=== PATIENT | female | born 1935 | race Caucasian/White ===

== ENCOUNTER → 2017-01-22 | Outpatient (CLI) | payer OTHER ==
[~2017-01-22] MED LIST: CHOL100010 PO; DIAZ5TAB3 PO
[2017-01-22 14:35] LABS: URINE APPEARANCE CLEAR (CLEAR); URINE BILIRUBIN NEG (NEG); URINE COLOR YELLOW; URINE NITRITE NEG (NEG); UROBILINOGEN NEG (NEG)
[2017-01-22 14:48] LABS: MANUAL MICROSCOPIC REQUIRED? NO; REVIEW REQ? NO
== END | disposition home or self-care (01) ==
LOC: C.LABSPEC 13:51
PROVIDERS: ATTEND Obstetrics & Gynecology
DX: R39.9 Unspecified symptoms and signs involving the genitourinary system (principal)

== ENCOUNTER → 2017-03-25 | Outpatient (CLI) | payer OTHER ==
--- NOTE | 2017-03-26 13:35 | MAMMOGRAPHY REPORT ---
BILATERAL DIGITAL SCREENING MAMMOGRAM TOMOSYNTHESIS WITH CAD: 03/25/2017 CLINICAL HISTORY: Routine screening. Patient has no complaints. TECHNIQUE: Breast tomosynthesis in addition to standard 2D mammography was performed. Current study was also evaluated with a Computer Aided Detection (CAD) system. COMPARISON: Comparison is made to exams dated: 02/28/2016 mammogram, 11/19/2014 mammogram, 11/16/2013 m ammogram, 08/20/2011 mammogram, 08/27/2009 mammogram - [facility], and 08/21/2008. BREAST COMPOSITION: There are scattered areas of fibroglandular density in both breasts. FINDINGS: No suspicious masses, calcifications, or areas of architectural distortion are noted in ei ther breast. There has been no significant interval change compared to prior exams. IMPRESSION: ACR BI-RADS CATEGORY 1: NEGATIVE There is no mammographic evidence of malignancy. A 1 year screening mammogram is recommended. The pa tient will receive written notification of the results. Approximately 10% of breast cancers are not detected with mammography. A negative mammographic report should not delay biopsy if a clinically suggestive mass is present. Melissa Sierra M.D. /:03/25/2017 16:39:14 Assistant Paralegal: Cheyanne MITCHELL(Aislinn)(Mony)([place]), [facility] letter sent: Normal 1/2 BI-RADS Code: ACR BI-RADS Category 1: Negative
== END | disposition home or self-care (01) ==
LOC: C.MAMM 16:11
PROVIDERS: ATTEND Obstetrics & Gynecology
DX: Z12.31 Encounter for screening mammogram for malignant neoplasm of breast (principal)

== ENCOUNTER → 2017-08-06 | Outpatient (CLI) | payer OTHER ==
--- NOTE | 2017-08-06 13:33 | DIAGNOSTIC IMAGING REPORT ---
L KNEE 4 OR MORE HISTORY: 82 years-old Female PRIMARY OSTEOARTHRITIS OF LEFT KNEE chronic left knee pain COMPARISON: Bilateral knee radiographs 02/11/2016 TECHNIQUE: AP view of the bilateral knees with sunrise, tunnel and crosstable lateral views of the left knee FINDINGS: Bones appear mildly demineralized. There is severe joint space narrowing involving the left medial compartment which appears to have slightly progressed from prior study. Moderate joint space narrowing of the medial compartment on the right. There is mild lateral compartment and moderate patellofemoral compartment osteoarthritis on the left. There is prominent marginal spurring about the knee along with spurring of the tibial spines. No acute fracture, subluxation or intra-articular loose body identified. There is a small joint effusion. IMPRESSION: 1. Small joint effusion without acute fracture or subluxation. 2. Tricompartmental osteoarthritis about the left knee, most pronounced within the medial compartment where there is severe disease. 3. Mild bone demineralization. The above report was generated using voice recognition software. It may contain grammatical, syntax or spelling errors. Electronically signed by: Owen Carrillo M.D. 08/06/2017 1:32 PM Dictated Date/Time: 08/06/2017 1:30 PM
== END | disposition home or self-care (01) ==
LOC: C.RDSM 13:00
PROVIDERS: ATTEND Family Medicine
DX: M17.12 Unilateral primary osteoarthritis, left knee (principal)

== ENCOUNTER 2018-03-08 07:11 | Inpatient (IN) | payer OTHER ==
[2018-01-18 08:28] VITALS: BMI 27.0
[2018-01-18 10:15] VITALS: BMI 29.0
--- NOTE | 2018-03-05 10:58 | HISTORY & PHYSICAL EXAMINATION ---
DATE OF ADMISSION: 03/08/2018 CHIEF COMPLAINT: Left knee pain. HISTORY OF PRESENT ILLNESS: An 83-year-old female who lives in [place] who presents for surgical treatment of her left knee. She has got a long history of left knee pain and discomfort that has gradually just gotten worse over time. She has been treated by Dr. Mcelroy at [facility]. She had steroid shots and viscosupplementation, which does not seem to help at all anymore. She has been through therapy, which helped minimally. Pain is mostly medially. It is increased with weightbearing. She has become less active due to her knee pain. She would like to go walking more and like to have her knee fixed. PAST MEDICAL HISTORY: Noncontributory. PAST SURGICAL HISTORY: None. ALLERGIES: None. CURRENT MEDICATIONS: Include Metamucil. SOCIAL HISTORY: This is an 83-year-old female who lives in [place]. She is retired. She is a teacher by training. She is . Rare alcohol intake. FAMILY HISTORY: Noncontributory. REVIEW OF SYSTEMS: Negative for diabetes, neurologic problems, vascular problems, or bleeding disorders. No chest pain. No shortness of breath. No history of DVT or PE. PHYSICAL EXAMINATION: GENERAL: Reveals a pleasant, thin elderly female. Looks to be in excellent health. HEENT: Benign. NECK: Supple. No lymphadenopathy. LUNGS: Clear to auscultation. HEART: Regular rate and rhythm. ABDOMEN: Soft, nontender, nondistended. EXTREMITIES: Grossly neurovascularly intact except as follows: Examination of the left knee reveals patient walks with a slight limp on her left side. She has got varus alignment to her knee. She has got bony hypertrophy medially. Small knee effusion. Range of motion is 5-125. There is no clinical instability. No pain with hip motion. She is neurologically intact. X-RAYS: X-ray of left knee reviewed. Shows advanced left knee DJD. She had complete loss of medial joint space. She has subchondral sclerosis. She has osteophytes of the medial femoral condyle and medial tibial plateau. ASSESSMENT: An 83-year-old fairly active, healthy female with advanced left knee degenerative joint disease, unresponsive to conservative treatment. She would like to have her knee fixed. PLAN: We are going to take her to the operating room and do a left knee replacement. The risks and benefits of this procedure were explained to the patient include, but not limited to DVT, PE, , infection, neurological injury, vascular injury, bleeding problem, pain, limited range of motion, stiffness, failure to relieve her symptoms, incomplete relief of symptoms, need for further surgery in future, fracture, leg length inequality, nerve palsy, etc. The patient understands and desires to proceed. Informed consent was obtained. We will likely send her home after her stay in the hospital with the [facility] home health program.
[~2018-03-08] VITALS: Ht 162.6 cm; Wt 76.7 kg
[2018-03-08] VITALS (9 sets, daily range): BP systolic 88–128; BP diastolic 48–73; PULSE 61–72; TEMP 36.3–36.7; O2SAT 92–97; Ht 162.6 cm; Wt 76.7 kg
[~2018-03-08 07:11] MED LIST changes: +ACETAMINOPHEN 500 MG TAB PO SCH; +BACITRACIN 50000 UNIT VIAL ONE; +BUPIVACAINE 0.25% 30 ML VIAL ONE; +BUPIVACAINE 0.5 % 5 MG/1 ML PF 10ML VIAL ONE; +BUPIVACAINE LIPOSOME 1/3% 266 MG/20 ML VIAL ONE; +BUPIVACAINE LIPOSOME 266 MG, BUPIVACAINE/EPINEPHRINE INJ 50 ML, SODIUM CHLORIDE 0.9% PF... INFIL SCH; +BUPIVACAINE/EPINEPHRINE 0.25% 1:200,000 30 ML VIAL ONE; +CEFAZOLIN 2000MG IV PUSH 15 ML IV SCH; +FAMOTIDINE 20 MG TAB PO SCH; +FLUT50SP45; +GABAPENTIN 300 MG CAP PO SCH; +IBUP-1050 PO; +LACTATED RINGER'S 1000ML 1,000 ML IV SCH; +LACTATED RINGER'S 1000ML 500 ML IV SCH; +LACTATED RINGER'S 1000ML IV SCH; +LOPE-41 PO; +MELA1TAB12 PO; +METOCLOPRAMIDE HCL 10 MG TAB PO SCH; +MISCCAP77 PO; +NUTR50CA PO; +OMEG10007 PO; +PSYL48.59 PO; +SODIUM CHLORIDE 0.9% PF 50 ML VIAL ONE; +TRANEXAMIC ACID INJ 1,000 MG x 1 Bag Intra-Op IV SCH; +TRAZ50TA35 PO
[2018-03-08] MEDS ORDERED: ACET-1693 PO (07:55)
[2018-03-08] MEDS ORDERED: LIDOCAINE HCL 2% 2 ML VIAL (20MG/ML) ONE (08:07)
[2018-03-08] MEDS ORDERED: FENTANYL CITRATE INJ 50 MCG/1 ML 2 ML VIAL ONE (08:07)
[2018-03-08] MEDS ORDERED: MIDAZOLAM HCL 1 MG/ML 2ML VIAL ONE (08:07)
[2018-03-08] MEDS ORDERED: PROPOFOL IV EMULSION 10 MG/ML 20 ML VIAL ONE ×2 (08:07→11:15)
[2018-03-08] MEDS ORDERED: FENTANYL CITRATE INJ 50 MCG/1 ML 2 ML VIAL IV PRN (08:15)
[2018-03-08] MEDS ORDERED: EpHEDrine SULFATE INJ 50 MG/ML AMP IV PRN (08:15)
[2018-03-08] MEDS ORDERED: ATROPINE SULFATE 0.1 MG/ML 5ML SYR IV PRN (08:15)
[2018-03-08] MEDS ORDERED: ONDANSETRON INJ 2 MG/ML 2 ML VIAL IV PRN (08:15)
--- NOTE | 2018-03-08 09:23 | History & Physical Bridge Note ---
H&P Re-Evaluation Bridge Note: I have examined the patient, reviewed the History & Physical and in the interval since the performance of the History & Physical I have noted the following changes of clinical significance: No changes noted
--- NOTE | 2018-03-08 11:36 | [facility] Post Operative Brief Note ---
Immediate Operative Summary Operative Date Mar 08, 2018. Pre-Operative Diagnosis DEGENERATIVE JOINT DISEASE LEFT KNEE Post-Operative Diagnosis degenerative joint disease left knee Procedure(s) Performed Left total knee arthroplasty Surgeon DR. Janny ANGELO Optical Scientist Surgeon(s) Symone SAWYER PAC Estimated Blood Loss 50cc Findings Consistent with Post-Op Diagnosis Fluids (cc crystalloids) 1300 cc Specimens LEFT KNEE BONE AND TISSUE Drains None Anesthesia Type MAC Spinal Regional Complication(s) none Disposition Accompanied Pt To Recover: no Disposition: Recovery Room / PACU Overlapping Procedure I was present for: the critical portions of procedure. I was immediately available: during the entire case
[2018-03-08] MEDS ORDERED: HYDROmorphone INJ 0.5 MG/0.5 ML SYR IV PRN (11:45)
[2018-03-08] MEDS ORDERED: MELATONIN 5 MG PO PRN (11:45)
[2018-03-08] MEDS ORDERED: SILVER SULFADIAZINE 1% CR 50 GM JAR EXT PRN (11:45)
[2018-03-08] MEDS ORDERED: ZOLPIDEM TARTRATE 5 MG TAB PO PRN (11:45)
[2018-03-08] MEDS ORDERED: MAGNESIUM HYDROXIDE SUSP 30 ML UDC PO PRN (11:45)
[2018-03-08] MEDS ORDERED: ALUMINUM/MAGNESIUM/SIMETH (MAALOX MAX) 30 ML UDC PO PRN (11:45)
[2018-03-08] MEDS ORDERED: METOCLOPRAMIDE HCL INJ 5 MG/ML 2 ML VIAL IV PRN (11:45)
[2018-03-08] MEDS ORDERED: CEFAZOLIN IV 1,000 MG in DEXTROSE 5% 50ML 50 ML IV SCH (11:45)
[2018-03-08] MEDS ORDERED: FLUTICASONE PROPIONATE NA SPR 16 GM BTL PRN (11:45)
--- NOTE | 2018-03-08 12:07 | DIAGNOSTIC IMAGING REPORT ---
L KNEE 1 OR 2 VIEWS ROUTINE CLINICAL HISTORY: AP/LATERAL IN PACU LEFT KNEE COMPARISON: None. DISCUSSION: Operative changes consistent with a total left knee arthroplasty. Good contact between prosthetic Bone. Expected soft tissue postoperative change. IMPRESSION: Anatomic alignment post total left knee arthroplasty. The above report was generated using voice recognition software. It may contain grammatical, syntax or spelling errors. Electronically signed by: Tristin Boyd M.D. 03/08/2018 12:06 PM Dictated Date/Time: 03/08/2018 12:05 PM
--- NOTE | 2018-03-08 12:14 | OPERATIVE REPORT ---
DATE OF OPERATION: 03/08/2018 SURGEON: Dhruv Martinez MD BRIQUETTE MAKER: GENESIS Brian PREOPERATIVE DIAGNOSIS: Left knee degenerative joint disease. POSTOPERATIVE DIAGNOSIS: Left knee degenerative joint disease. PROCEDURE PERFORMED: Left cemented posterior stabilized total knee arthroplasty. COMPLICATIONS: None. ESTIMATED BLOOD LOSS: 50 mL. FLUID REPLACEMENT: 1300 mL crystalloid fluid replacement. TOURNIQUET TIME: 51 minutes at 300 mmHg. ANESTHESIA: Spinal with adductor canal block. DRAINS: None. SPECIMENS: Left knee sent for pathology. OPERATIVE INDICATIONS: The patient is an 83-year-old female who has had a very long history of left knee pain and discomfort which has become less successful. We treated with conservative care. She has been through extensive conservative care including steroid shots and viscosupplementation as well as medicines without much relief recently. X-rays show advanced DJD. She would like to proceed with total knee arthroplasty. OPERATIVE FINDINGS: Operative findings revealed advanced left knee DJD. She had extensive grade 4 [id number] disease of the medial femoral condyle and medial tibial plateau. She had osteophytes off the medial femoral condyle and medial tibial plateau. She had a varus deformity to her knee. The lateral and patellofemoral compartments showed some moderate degenerative change. OPERATIVE IMPLANTS: Operative implants consisted of: 1. Biomet Vanguard size 62.5 left posterior stabilized bifemoral component. 2. A Biomet size 67 tibial tray. 3. A 10 mm posterior stabilized polyethylene insert. 4. A 28 x 8 all poly patella. OPERATIVE PROCEDURE: The patient was taken to the operating room, identified and placed on the operative table in supine position. All contact areas were appropriately padded. IV antibiotics were provided by the anesthesia team. A spinal anesthetic and adductor canal block had been provided in the holding area. Britton catheter was placed in sterile fashion. Left thigh tourniquet was then placed and the left lower extremity was then prepped and draped in usual sterile fashion. The left leg was elevated and exsanguinated with Esmarch and tourniquet placed at 300 mmHg. An anterior approach of the left knee was then performed through a longitudinal incision centered over the patella. Sharp dissection was carried through the subcutaneous tissue down to the level of the extensor mechanism. A medial parapatellar arthrotomy incision was made. Some subperiosteal dissection was carried out medially. The fat pad resected from beneath the patellar tendon. Lateral patellofemoral ligament was released. Patella was everted and knee was flexed. The osteophytes were taken off the distal femur. The ACL and PCL were then released from the distal femur. The tibia subluxated anteriorly. The external tibial alignment jig was then placed in the anterior face of the tibia and adjusted 14 mm medially. Proximal tibial cut was made to remove about 2 mm of bone from the most deficient aspect of the medial tibial plateau. Some osteophytes were taken off medial and posteromedially. Tibia sized to a size 67. Attention was then drawn to the femur. The distal femur was entered with a sharp drill bit. Intramedullary canal was suctioned. A left 5-degree valgus cutting guide was placed. Distal femoral cutting block was pinned in place. Distal femoral cut was made to take an additional 3 mm of bone off the distal femur. The femur was then sized to a size 62.5. We downsized this just slightly. The AP cutting block was pinned parallel to the epicondylar axis, which was 5 degrees of external rotation. The anterior cut, anterior chamfer, posterior cut, posterior chamfer cuts were made. Box cutting guide was placed and adjusted slightly lateral and the box cut was made. The knee was flexed. The remnants of the medial and lateral menisci were excised. The osteophytes were taken off the posterior aspect of the femur. A trial femoral component was placed. Tibial tray was pinned in maximum external rotation, and the drill and stem punch were used to create defect in proximal tibia for the tibial tray. The knee was then trialed and the 10 mm insert fit most appropriately. Attention was then drawn to the patella. The patella was cleaned of all soft tissues. Patella thickness measured 20 mm in thickness, it was cut down to 12. It was sized to a size 28 patella. Lug holes were drilled for a 28 patella. The lateral osteophyte was removed. Patella button was placed. Knee was taken through range of motion and patella tracked nicely with no thumbs test. Attention was then drawn toward placing the permanent components. All trial components were removed. A bone plug was placed in the distal femur to limit blood loss. A double batch of Palacos G cement was mixed. A left size 62.5 posterior stabilized femoral component, size 67 tibial tray, 10 mm posterior stabilized polyethylene insert, 28 x 8 all poly patella then cemented in place. Knee was brought out into full extension until the cement hardened. A final cement check was then performed. Pericapsular tissues were injected with a total of 100 mL of combination of 20 mL of Exparel, 30 mL of normal saline, 50 mL of 0.25% Marcaine with epinephrine. The patient did receive 1 gram of tranexamic acid. The tourniquet was then let down for final tourniquet of 51 minutes. Hemostasis was assured with use of electrocautery. The extensor mechanism was then closed with combination of #1 PDS suture and #1 Vicryl suture in [id number] fashion. Extensor mechanism was checked and found to be intact. The subcutaneous tissue was then closed with 2 Dexon suture in a buried interrupted fashion. Skin was closed skin carlos manuel. The leg was then cleaned, dried and a sterile dressing of Xeroform, 4 x 4's, sterile cast padding and Gurwinder bandage were applied. The patient then transferred to the recovery room in stable condition. The patient tolerated the procedure well with no complication. All needle and sponge counts were correct at the end of the operation. I attest to the content of the Intraoperative Record and any orders documented therein. Any exception s are noted below.
--- NOTE | 2018-03-08 12:50 | Anesthesiology Progress Note ---
Anesthesia Post Op Note Date & Time Mar 08, 2018 at 12:50 Vital Signs Pain Intensity: 0 Vital Signs Past 12 Hours Date Time Temp Pulse Resp B/P (MAP) Pulse Ox O2 Delivery O2 Flow Rate FiO2 03/08/18 12:40 68 17 122/52 97 Nasal Cannula 2 03/08/18 12:30 67 16 118/50 100 Nasal Cannula 2 03/08/18 12:20 66 14 128/55 99 Nasal Cannula 2 03/08/18 12:10 73 15 124/53 100 Nasal Cannula 2 03/08/18 12:00 64 15 118/65 99 Nasal Cannula 2 03/08/18 11:50 71 14 110/49 99 Nasal Cannula 2 03/08/18 11:41 36.5 71 19 115/50 98 Nasal Cannula 2 03/08/18 07:55 36.7 71 20 128/73 92 Room Air Notes Mental Status: alert / awake / arousable, participated in evaluation Nausea / Vomiting: adequately controlled Pain: adequately controlled Airway Patency, RR, SpO2: stable & adequate BP & HR: stable & adequate Hydration State: stable & adequate Neuraxial Anesthesia: was administered, sensory block is resolving Anesthetic Complications: no major complications apparent
[2018-03-08] MEDS: FERROUS GLUCONATE 324 MG TAB PO SCH ×2 (14:19→17:50)
[2018-03-08] MEDS ORDERED: LOPERAMIDE HCL 2 MG CAP PO PRN (14:30)
[2018-03-08] MEDS: D5W AND 1/2NSS + 20MEQ KCL 1,000 ML IV SCH (15:10)
[2018-03-08] MEDS: KETOROLAC TROMETHAMINE 15 MG/ML VIAL IV. SCH ×2 (15:57→21:06)
--- NOTE | 2018-03-08 16:39 | PROGRESS NOTE ---
DATE: 03/08/2018 SUBJECTIVE: An 83-year-old white female postop from a left knee replacement. She is doing pretty well. Does not have any pain yet. She really cannot feel her legs yet. Denies any chest pain or shortness of breath. Not feeling dizzy or lightheaded. OBJECTIVE: VITAL SIGNS: Temperature 36.4. Vital signs stable. GENERAL: Physical examination reveals a pleasant elderly female. She is lying in bed, looks comfortable. LUNGS: Clear to auscultation. HEART: Regular rate and rhythm. ABDOMEN: Soft, nontender, nondistended. EXTREMITIES: Grossly neurovascularly intact except as follows: Examination of the left lower extremity reveals the leg to be well aligned. Dressing is clean, dry and intact. She has got brisk refill. She has got good distal pulse. No significant sensory or motor function yet. X-RAYS: X-rays of the left knee from recovery room reviewed. It shows a cemented posterior stabilized total knee arthroplasty. Components looked to be in good position. No signs of problems. ASSESSMENT: An 83-year-old white female postop from a left knee replacement. She is doing well. Pain is controlled. Her block is still in effect. PLAN: 1. DVT prophylaxis including thigh-high TEDs, SCDs, and we will start her on Xarelto 24 hours postop for a total of 30 days. 2. PT and OT. Weight bear as tolerated. Left total knee protocol. 3. Pain control, doing pretty well with current pain regimen. We will obviously have to titrate her meds for pain as the block wears off. 4. IV antibiotics x24 hours. 5. Disposition: She is hoping to be discharged to home with some home health once adequately recovered.
[2018-03-08] MEDS: CEFAZOLIN IV 1,000 MG in SYRINGE 0 ML IV SCH (17:50)
[2018-03-08] MEDS ORDERED: TRANEXAMIC ACID INJ 1,000 MG in SODIUM CHLORIDE 0.9% 100ML 100 ML IV SCH (18:00)
[2018-03-08] MEDS: TRAMADOL HCL 50 MG TAB PO PRN ×2 (19:36→21:06)
[2018-03-08] MEDS ORDERED: ULT50X PO (20:15)
[2018-03-08] MEDS ORDERED: FRRG PO (20:15)
[2018-03-08] MEDS ORDERED: ACET-24 PO (20:15)
[2018-03-08] MEDS ORDERED: XRL10 PO (20:15)
--- NOTE | 2018-03-08 20:18 | Discharge Instructions ---
Discharge Instructions Date of Service Mar 08, 2018. Admission Reason for Admission: Left Knee Degenerative Joint Disease Discharge Discharge Diagnosis / Problem: Left Knee Replacement Discharge Goals Goal(s): Decrease discomfort, Improve function, Increase independence, Improve disease control, Therapeutic intervention Activity Recommendations Activity Limitations: per Instructions/Follow-up section Weightbearing Status: Left weightbearing . Instructions / Follow-Up Instructions / Follow-Up ACTIVITY RECOMMENDATIONS: Physical Therapy: * You will go to physical therapy three times each week for four to six weeks after your surgery in order to regain your knee range of motion and to retrain your knee to work properly. * It is just as important to make sure you are getting your knee perfectly straight as it is to regain your knee bend. * Taking a pain pill an hour before therapy can help you have a more productive and comfortable therapy session. Home Exercise: * You were shown a series of exercises (heel props, heel slides, etc.) in the hospital. Do these exercises three to four times each day including the exercises you were shown in physical therapy. Walking: * Get up and walk several times each day. For the first four weeks, try not to stand or walk for more than one hour at a time. If you do stand or walk for more than one hour, you will not hurt anything, but your knee and leg will likely swell. * As you feel comfortable, you may change from the walker or crutches to a cane and then to independent walking. MEDICATIONS: New Medicine: * You will likely be taking one or more of these medications: 1. Tramadol - A quick and shorter-acting pain medication. Take one to two tablets every four to six hours to lessen your pain. 2. Iron Sulfate - Take two times each day for the month after surgery to help you replace the blood lost during surgery. 3. Xarelto - Thins your blood to lessen the chance of forming a blood clot. * The most common side effects of pain medicine and iron are nausea and constipation. If nausea or constipation is too much of a problem or if you have any questions about your new medicines or doses, call [facility] at [phone]. We will try to help you manage these issues. VERY IMPORTANT TO READ AND REVIEW" Pain: * The immediate post-operative period after knee replacement surgery is often quite painful. * You are given a prescription for pain medicine. You should take it, as directed, when you need it, especially before physical therapy and before going to bed. Pain that interferes with sleep is very common and can last several months. * You will likely need pain medicine for the first four to six weeks. It will not stop all of the pain. The pain will lessen and as you feel better, you may change to milder pain medicine such as Tylenol. * The most common side effects of pain medicine are nausea and constipation, so don't take more than you need. SPECIAL CARE INSTRUCTIONS: TEDs/Elastic Stockings: * The white elastic stockings help limit swelling and prevent blood clots from forming in your legs. The more you wear them, the more they work. * Wear them for six weeks after knee replacement surgery and four weeks after partial knee replacement. Prevention of Infection: * Take antibiotics one hour before any dental cleaning, dental work, urological procedure, gastrointestinal procedure or any invasive surgery in order to prevent your new joint from getting infected. * You may get the antibiotics from the doctor performing the procedure or you may call our office at before and we will call in a prescription to the pharmacy of your choice. Things to Watch For: * Drainage from the incision site that occurs more than one week after your surgery. * Severely increased knee/leg pain or swelling. * Increased redness at the incision site. * Fever above 102 degrees Fahrenheit. * Unusual chest pain or shortness of breath. * Unusual pain or burning with urination. Call [facility] at with any of the above problems or if you have any questions about your medicines or recovery. FOLLOW UP VISIT: Make an appointment to see your doctor for approximately two weeks after surgery for a progress check and staple removal by calling the office at . Current Hospital Diet Patient's current hospital diet: Regular Diet Discharge Diet Recommended Diet: Regular Diet Procedures Procedures Performed: Left total knee arthroplasty Pending Studies Studies pending at discharge: no Medical Emergencies . Who to Call and When: Medical Emergencies: If at any time you feel your situation is an emergency, please call [phone] immediately. . Non-Emergent Contact Non-Emergency issues call your: Surgeon . "Provider Documentation" section prepared by Dhruv Martinez. .
[2018-03-08] MEDS: SENNA 8.6 MG TAB PO SCH (21:00)
[2018-03-08] MEDS: DOCUSATE SODIUM 100 MG CAP PO SCH (21:05)
[2018-03-08] MEDS: ACETAMINOPHEN 500 MG TAB PO SCH (21:05)
[2018-03-08] MEDS: TRAZODONE HCL 50 MG TAB PO SCH (21:06)
[2018-03-09] MEDS: D5W AND 1/2NSS + 20MEQ KCL 1,000 ML IV SCH ×2 (01:04→09:51)
[2018-03-09] MEDS: DIAZEPAM 5MG TAB PO PRN ×2 (01:39→23:46)
[2018-03-09] MEDS: CEFAZOLIN IV 1,000 MG in SYRINGE 0 ML IV SCH (01:40)
[2018-03-09 03:52] VITALS: BP 93/52; PULSE 57; TEMP 36.6; O2SAT 98
[2018-03-09] MEDS: KETOROLAC TROMETHAMINE 15 MG/ML VIAL IV. SCH ×4 (04:05→20:20)
[2018-03-09] MEDS: ACETAMINOPHEN 500 MG TAB PO SCH ×3 (06:27→20:21)
[2018-03-09 06:47] LABS: HEMOGLOBIN 11.4 g/dL (12.0-16.0); MEAN CELL VOLUME 89.9 fL (80-100); MEAN CORPUSCULAR HEMOGLOBIN 30.2 pg (25-34); MEAN CORPUSCULAR HGB CONC 33.5 g/dl (32-36); PLATELET COUNT 125 K/uL (130-400); RED CELL DISTRIBUTION WIDTH SD 42.4 fL (36.4-46.3); WHITE BLOOD COUNT 4.21 K/uL (4.8-10.8)
[2018-03-09 07:22] LABS: CALCIUM 7.8 mg/dl (8.5-10.1); CREATININE 0.68 mg/dl (0.60-1.20); POTASSIUM 4.3 mmol/L (3.5-5.1)
[2018-03-09 07:23] VITALS: BP 101/60; PULSE 63; TEMP 37; O2SAT 93
[2018-03-09] MEDS: TRAMADOL HCL 50 MG TAB PO PRN ×3 (07:37→20:20)
--- NOTE | 2018-03-09 08:00 | Anesthesiology Progress Note ---
Anesthesia Post Op Note Date & Time Mar 09, 2018 at 08:00 Vital Signs Pain Intensity: 7.0 Vital Signs Past 12 Hours Date Time Temp Pulse Resp B/P (MAP) Pulse Ox O2 Delivery O2 Flow Rate FiO2 03/09/18 07:30 Room Air 03/09/18 07:23 37.0 63 18 101/60 (74) 93 Room Air 03/09/18 03:52 36.6 57 16 93/52 (66) 98 Room Air 03/08/18 23:30 92 Room Air 1.0 03/08/18 23:20 36.6 61 16 90/48 (62) 92 Room Air 03/08/18 23:20 88/51 (63) Notes Mental Status: alert / awake / arousable, participated in evaluation Pt Amnestic to Procedure: Yes Nausea / Vomiting: adequately controlled Pain: adequately controlled Airway Patency, RR, SpO2: stable & adequate BP & HR: stable & adequate Hydration State: stable & adequate Neuraxial Anesthesia: was administered, sensory block resolved Anesthetic Complications: no major complications apparent
[2018-03-09] MEDS: CHOLECALCIFEROL 400 INTER.UNIT TAB PO SCH (08:41)
[2018-03-09] MEDS ORDERED: PROBIOTIC PRODUCT PO SCH (09:00)
[2018-03-09] MEDS ORDERED: NUTRITIONAL SUPPLEMENTS PO SCH (09:00)
[2018-03-09] MEDS ORDERED: PSYLLIUM 58.6% PWD PACK S\\F PO SCH (09:00)
[2018-03-09] MEDS ORDERED: LOPERAMIDE LIQUID 1MG/7.5ML 120ML BTL PO SCH (09:00)
[2018-03-09] MEDS: DOCUSATE SODIUM 100 MG CAP PO SCH ×2 (09:48→20:21)
[2018-03-09] MEDS: FERROUS GLUCONATE 324 MG TAB PO SCH ×3 (09:48→18:35)
[2018-03-09] MEDS: MULTIVITAMIN TAB PO SCH (09:48)
[2018-03-09] MEDS: PANTOprazole SOD 40 MG TAB PO SCH (09:48)
--- NOTE | 2018-03-09 09:49 | PROGRESS NOTE ---
DATE: 03/09/2018 SUBJECTIVE: An 83-year-old white female postop day 1 from a left knee replacement. She is doing pretty well. The feeling and function has come back in her leg. She is having some pain but manageable. No chest pain or shortness of breath. Not feeling dizzy or lightheaded. OBJECTIVE: VITAL SIGNS: Temperature 37.0. Vital signs stable. GENERAL: Reveals a pleasant elderly female. She is sitting up in bed and looks pretty comfortable. EXTREMITIES: Examination of the left leg reveals the leg to be well aligned. Dressing is clean, dry, and intact. There is no significant drainage. She can dorsiflex and plantarflex her foot appropriately. She is neurologically intact. LABORATORY DATA: Hemoglobin 11.4. Hematocrit 34.0. Electrolytes are stable. ASSESSMENT: An 83-year-old white female postop day 1 from left knee replacement, doing pretty well. Her pain is reasonably well controlled. She is neurologically intact. Her nerve and sensory functions have returned. PLAN: 1. DVT prophylaxis including thigh-high TEDs, SCDs, and Xarelto for 1 month. 2. PT/OT. She can weightbear as tolerated. Left total knee protocol. 3. Pain control, doing well with current pain regimen. We are going to try and stick to Tylenol, tramadol, and low-dose Toradol. 4. Disposition: She is now hoping to go to [facility]. financial services agent has seen her and will work on this and hopefully get approval.
[2018-03-09 10:58] VITALS: BP 97/58; PULSE 64; O2SAT 91
[2018-03-09] MEDS: RIVAROXABAN 10 MG TAB PO SCH (12:11)
[2018-03-09 16:14] VITALS: BP 108/61; PULSE 56; TEMP 36.8; O2SAT 94
[2018-03-09] MEDS: SENNA 8.6 MG TAB PO SCH (20:21)
[2018-03-09] MEDS: TRAZODONE HCL 50 MG TAB PO SCH (20:22)
--- NOTE | 2018-03-09 20:24 | Discharge Instructions ---
Discharge Instructions Date of Service Mar 09, 2018. Admission Reason for Admission: Left Knee Degenerative Joint Disease Discharge Discharge Diagnosis / Problem: Left Knee Replacement Discharge Goals Goal(s): Decrease discomfort, Improve function, Increase independence, Improve disease control, Therapeutic intervention Activity Recommendations Activity Level: Assistance Required Therapies: Physical Therapy, Occupational Therapy Weightbearing Status: Left weightbearing . Additional Information Patient informed of condition: Yes Advance Directives: Yes DNR: No Level of Care: Acute Rehab Communicable Disease: No Prognosis: Improving Instructions / Follow-Up Instructions / Follow-Up ACTIVITY RECOMMENDATIONS: Physical Therapy: * You will go to physical therapy three times each week for four to six weeks after your surgery in order to regain your knee range of motion and to retrain your knee to work properly. * It is just as important to make sure you are getting your knee perfectly straight as it is to regain your knee bend. * Taking a pain pill an hour before therapy can help you have a more productive and comfortable therapy session. Home Exercise: * You were shown a series of exercises (heel props, heel slides, etc.) in the hospital. Do these exercises three to four times each day including the exercises you were shown in physical therapy. Walking: * Get up and walk several times each day. For the first four weeks, try not to stand or walk for more than one hour at a time. If you do stand or walk for more than one hour, you will not hurt anything, but your knee and leg will likely swell. * As you feel comfortable, you may change from the walker or crutches to a cane and then to independent walking. MEDICATIONS: New Medicine: * You will likely be taking one or more of these medications: 1. Tramadol - A quick and shorter-acting pain medication. Take one to two tablets every four to six hours to lessen your pain. 2. Iron Sulfate - Take two times each day for the month after surgery to help you replace the blood lost during surgery. 3. Xarelto - Thins your blood to lessen the chance of forming a blood clot. * The most common side effects of pain medicine and iron are nausea and constipation. If nausea or constipation is too much of a problem or if you have any questions about your new medicines or doses, call [facility] at [phone]. We will try to help you manage these issues. VERY IMPORTANT TO READ AND REVIEW" Pain: * The immediate post-operative period after knee replacement surgery is often quite painful. * You are given a prescription for pain medicine. You should take it, as directed, when you need it, especially before physical therapy and before going to bed. Pain that interferes with sleep is very common and can last several months. * You will likely need pain medicine for the first four to six weeks. It will not stop all of the pain. The pain will lessen and as you feel better, you may change to milder pain medicine such as Tylenol. * The most common side effects of pain medicine are nausea and constipation, so don't take more than you need. SPECIAL CARE INSTRUCTIONS: TEDs/Elastic Stockings: * The white elastic stockings help limit swelling and prevent blood clots from forming in your legs. The more you wear them, the more they work. * Wear them for six weeks after knee replacement surgery and four weeks after partial knee replacement. Prevention of Infection: * Take antibiotics one hour before any dental cleaning, dental work, urological procedure, gastrointestinal procedure or any invasive surgery in order to prevent your new joint from getting infected. * You may get the antibiotics from the doctor performing the procedure or you may call our office at before and we will call in a prescription to the pharmacy of your choice. Things to Watch For: * Drainage from the incision site that occurs more than one week after your surgery. * Severely increased knee/leg pain or swelling. * Increased redness at the incision site. * Fever above 102 degrees Fahrenheit. * Unusual chest pain or shortness of breath. * Unusual pain or burning with urination. Call [facility] at with any of the above problems or if you have any questions about your medicines or recovery. FOLLOW UP VISIT: Make an appointment to see your doctor for approximately two weeks after surgery for a progress check and staple removal by calling the office at . Current Hospital Diet Patient's current hospital diet: Regular Diet Discharge Diet Recommended Diet: Regular Diet Procedures Procedures Performed: Left total knee arthroplasty Pending Studies Studies pending at discharge: no Medical Emergencies . Who to Call and When: Medical Emergencies: If at any time you feel your situation is an emergency, please call [phone] immediately. . Non-Emergent Contact Non-Emergency issues call your: Surgeon . . "Provider Documentation" section prepared by Dhruv Martinez. . Core Measure Problem Core Measures: None
[2018-03-09 23:16] VITALS: BP 101/57; PULSE 56; TEMP 36.6; O2SAT 91
[2018-03-09 23:30] VITALS: O2SAT 91
[2018-03-10] MEDS: KETOROLAC TROMETHAMINE 15 MG/ML VIAL IV. SCH ×2 (04:07→09:59)
[2018-03-10] MEDS: ACETAMINOPHEN 500 MG TAB PO SCH ×2 (06:15→13:32)
[2018-03-10 07:07] VITALS: BP 94/49; PULSE 56; TEMP 36.7; O2SAT 95
[2018-03-10 07:50] VITALS: TEMP 36.7; O2SAT 95
--- NOTE | 2018-03-10 08:07 | PROGRESS NOTE ---
DATE: 03/10/2018 SUBJECTIVE: An 83-year-old female postop day 2 from a left knee replacement. Patient is doing well. Pain is bit better today. No chest pain or shortness of breath. Not feeling dizzy or lightheaded. OBJECTIVE: VITAL SIGNS: Temperature is 36.7. Vital signs stable. PHYSICAL EXAMINATION: GENERAL: A pleasant elderly female. Patient is lying in bed, looks completely comfortable. EXTREMITIES: Examination of the left leg reveals the dressing to be clean, dry and intact. Calf is soft and supple. She is neurologically intact. ASSESSMENT: An 83-year-old female postop day 2 from a left knee replacement, doing pretty well. PLAN: 1. DVT prophylaxis including TEDs, SCDs, and Xarelto for 1 month postop. 2. PT, OT. Patient is to weightbear as tolerated. Left total knee protocol. 3. Pain control, doing pretty well with current pain regimen. 4. Disposition: She is hoping to be discharged to rehab for a brief rehab stay once medically stable.
[2018-03-10] MEDS: PANTOprazole SOD 40 MG TAB PO SCH (09:01)
[2018-03-10] MEDS: FERROUS GLUCONATE 324 MG TAB PO SCH ×2 (09:01→12:30)
[2018-03-10] MEDS: MULTIVITAMIN TAB PO SCH (09:01)
[2018-03-10] MEDS: DOCUSATE SODIUM 100 MG CAP PO SCH (09:01)
[2018-03-10] MEDS: CHOLECALCIFEROL 400 INTER.UNIT TAB PO SCH (09:01)
[2018-03-10] MEDS: RIVAROXABAN 10 MG TAB PO SCH (09:02)
[2018-03-10] MEDS: TRAMADOL HCL 50 MG TAB PO PRN (09:04)
[2018-03-10] MEDS: BISACODYL 10 MG SUPP PR PRN ×2 (12:04→12:05)
[2018-03-10 13:30] VITALS: BP 112/67; PULSE 65
[2018-03-11] MEDS ORDERED: TRAM-10 PO (08:30)
[2018-03-11] MEDS ORDERED: FERR325T18 PO (08:30)
[2018-03-11] MEDS ORDERED: XRL10 PO (08:30)
[2018-03-12] MEDS ORDERED: ACET-24 PO (07:57)
[2018-03-12] MEDS ORDERED: TRAM-10 PO (07:57)
[2018-03-12] MEDS ORDERED: OXYC-90 PO (12:02)
[2018-03-12] MEDS ORDERED: XRL20 PO (12:02)
--- NOTE | 2018-03-15 20:46 | DISCHARGE SUMMARY ---
ADMITTING DIAGNOSIS: Left knee degenerative joint disease. SURGERY PERFORMED: Left total knee arthroplasty. SECONDARY DIAGNOSIS: Noncontributory. CONSULTS: None obtained. HISTORY AND PHYSICAL EXAMINATION: Well documented in the patient's chart. HOSPITAL COURSE: The patient was admitted on 03/08/2018, underwent total knee arthroplasty, tolerated the procedure well. There were no complications. She was transferred to the PACU postoperatively and later to the orthopedic floor for further care. She was given Ancef for antibiotic prophylaxis, MESSI stockings, SCDs, and Xarelto for DVT prophylaxis. Hemoglobin, hematocrit, and vital signs were monitored during hospital stay and remained stable. She did not require any blood transfusions. There were no complications. By postoperative day 2, she was tolerating regular diet. Pain was controlled with oral pain medicine. She was participating in physical therapy. Postop day 2, she was discharged to rehab facility. She was given printed discharge instructions. To continue her home medications with the exception of her home dose of Tylenol. She will continue physical therapy, weightbearing as tolerated, MESSI stockings. Follow up in approximately 2 weeks postoperatively or sooner if any problems or concerns.
== END 2018-03-10 16:06 | DRG 470 ==
LOC: C.ACU 07:11 → C.3E 11:40 → ENRESERV 12:03
PROVIDERS: ADMIT Orthopaedic Surgery Sports Medicine; ATTEND Orthopaedic Surgery Sports Medicine
PROC: 0SRD0J9 Replacement of Left Knee Joint with Synthetic Substitute, Cemented, Open Approach (ICD-10-PCS; principal; 2018-03-08 09:00)
DX: M17.12 Unilateral primary osteoarthritis, left knee (principal)

== ENCOUNTER 2025-03-27 12:30 | Inpatient (IN) ==
--- NOTE | 2025-03-27 12:55 | Emergency Department Note ---
Impression & Plan Acute upper gastrointestinal bleeding, Anemia, Abdominal pain, Vomiting ED Provider Note NAME: MARIO SOTO AGE: 89 SEX: F : 1935 ARRIVES VIA: Ambulance INFORMANT: Patient, EMS ED PROVIDER(S): Hussein Pradhan DO CHIEF COMPLAINT: Vomiting HPI: The patient is an 89-year-old female who presented to the emergency department after having an episode of emesis. The patient has not felt well over the last 3 days. She noticed upper abdominal pain and now vomiting. She does take oral anticoagulants because of a history of atrial fibrillation. She last took her dose last evening. She did not take her morning dose. The patient was noted to have hypotension. She was moved to a resuscitation room immediately. The patient denies having any back pain or chest pain. She denies having any difficulty breathing. ROS: See above HPI for pertinent positives & negatives. A total of 10 systems reviewed and were otherwise negative. PAST MEDICAL HISTORY: See Below PAST SURGICAL HISTORY: See Below FAMILY HISTORY: See Below SOCIAL HISTORY: See Below HOME MEDICATIONS: See Below ALLERGIES: See Below VITALS: See Below PHYSICAL EXAMINATION: GENERAL: The patient is awake and alert. The patient is somewhat anxious appearing. EYES: The conjunctivae are clear. The pupils are round and reactive. EARS, NOSE, MOUTH AND THROAT: The nose is without any evidence of any deformity. NECK: The neck is nontender and supple. RESPIRATORY: Normal respiratory effort is noted there is no evidence of wheezing rhonchi or rales CARDIOVASCULAR: Regular rate and rhythm noted there no murmurs rubs or gallops normal S1 normal S2. GASTROINTESTINAL: The abdomen is soft and mildly distended. There is no tenderness guarding rigidity. Rectal exam revealed dark stool stool which was strongly heme positive. MUSCULOSKELETAL/EXTREMITIES: There is no evidence of gross deformity full range of motion is noted in the hips and shoulders. SKIN: There is no obvious evidence of any rash. There are no petechiae, pallor or cyanosis noted. NEUROLOGIC: Patient is awake alert and oriented x3 MEDICAL DECISION MAKING: The patient is an 89-year-old female who presented to the emergency department for an evaluation of nausea vomiting. The patient was hypotensive and brought directly room. The patient was treated with IV fluids the emergency department. She was reevaluated multiple times. I discussed the patient's laboratory and radiographic studies with her. She was treated with IV fluids as well as IV antibiotics. She was also treated with proton pump inhibitor and H2 blockers. On reevaluation her blood pressure did improve. She was found to have heme positive stool. She does use NSAIDs. I discussed her condition with the on- call electrical lineman as well as the on-call [facility] hospitalist. They have agreed to evaluate the patient in the emergency department for further management and disposition. The patient did not take her blood thinner this morning. She last took a dose last evening. Triage Nursing notes reviewed. Prior medical records reviewed Vital Signs: reviewed and remarkable for hypotension. Differential diagnosis: Diverticulosis, AVM, coagulopathy, colitis, inflammatory bowel disease, malignancy, Erica-Aparicio tear, esophagitis, peptic ulcer disease, variceal bleed, gastritis, epistaxis, fissure, hemorrhoids, as well as other pathologies. ER treatment provided: See below Diagnostics interpreted by me: ECG: EKG was obtained in the emergency department. My interpretation is normal sinus rhythm at 89 bpm. There is no ectopy. There is no acute ST segment abnormalities noted. This was compared to a tracing from November 23, 2024. No changes were noted. Cardiac Monitoring: An order was placed for continuous cardiac monitoring. The monitor shows a rate of 88 bpm with sinus rhythm. Laboratory studies: As stated above and show below. Imaging studies: See below. Radiographic imaging was reviewed by myself Consultation(s): I discussed this case with Eugenio who is on for the gastroenterology group. ED COURSE: Procedures: none Critical Care: I have personally spent greater than 40 minutes of critical care time in the direct management of this patient. This includes bedside care, interpretation of diagnostic studies, and testing, discussion with consultants, patient, and family members, and other required patient management activities. This 40 minutes is in excess of all separately billable procedures. Past Med/Surg History Problem List (Updated 03/27/25 @ 15:12 by Hussein Pradhan DO) Vomiting (Acute) Abdominal pain (Acute) Anemia (Acute) Acute upper gastrointestinal bleeding (Acute) Heme positive stool Anemia Lightheadedness Shortness of breath Lumbar spondylosis Increased urinary frequency Right knee DJD Abnormal CXR Chronic sinusitis Bronchiectasis Chronic cough Allergic rhinitis due to allergen Anticoagulant long-term use Atrial fibrillation Palpitation Medical History Acute pharyngitis Bronchiectasis Cholelithiasis Cough Encounter for routine pelvic examination Fatigue Insomnia Left knee DJD Paroxysmal atrial fibrillation 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 Recurrent urinary tract infection Urinary tract infection symptoms Surgical History History of bronchoscopy History of cataract surgery History of knee replacement Family History Mother Cancer Father Cancer Son Cancer Daughter Allergies Other No family history of adverse response to anesthesia No family history of bleeding disorder Social History Smoking Status: Never smoker Do You Dip or Chew Tobacco: No; Hx Alcohol Use: Yes Alcohol Intake Frequency: Monthly or Less Hx Substance Use: No Preferred Language: Congolese Feels Safe at Home: Yes Allergies Allergies Allergy/AdvReac Type Severity Reaction Status Date / Time peanut Allergy Intermediate headache Verified 03/27/25 14:38 erythromycin base Allergy Unknown Unknown - Unverified 03/27/25 14:38 Very old allergy house dust Allergy Unknown Verified 03/27/25 14:38 pollen extracts Allergy Unknown Verified 03/27/25 14:38 Home Meds Home Medications Medication Instructions Recorded Confirmed melatonin 10 mg tablet 10 mg PO HS PRN insomnia 06/08/19 03/27/25 smlbnht-yzithpmvnkcqb-orosaxsf 250 1 tab PO Q6H PRN Headache 03/27/25 03/27/25 mg-250 mg-65 mg tablet (Excedrin Migraine) azelastine 137 mcg (0.1 %) nasal 1 spray intranasal DAILY PRN 03/27/25 03/27/25 spray Allergy Symptoms doxycycline hyclate 100 mg capsule 100 mg PO BID 03/27/25 03/27/25 methocarbamol 500 mg tablet 500 mg PO DAILY PRN Pain 03/27/25 03/27/25 Previous Rx's Medication Instructions Recorded apixaban 5 mg tablet (Eliquis) 5 mg PO BID #180 tabs 09/27/24 Results & Data (ED) Vital Signs Vital Signs - 24 hr 03/27/25 12:39 03/27/25 12:55 03/27/25 13:01 Temperature Temperature Source Pulse Rate 67 91 H Pulse Rate [Apical] 88 Pulse Rhythm Regular Pulse Strength [Apical] Respiratory Rate 15 21 18 Respiratory Effort / Characteristics Non-Labored Spontaneous Non-Labored Spontaneous Respiratory Depth Shallow Normal Respiratory Pattern Regular Regular Blood Pressure 67/42 L Blood Pressure [Right Arm] 114/64 Blood Pressure Mean 50 Blood Pressure Mean [Right Arm] 80 Pulse Oximetry 96 93 95 Oxygen Delivery Method Room Air Room Air Room Air Sepsis Recent Fever Within 48 Hours No Sepsis New/Unexplained Change in Mental Status N/A Sepsis Action Taken by Nursing No Action Required 03/27/25 13:10 03/27/25 13:40 03/27/25 13:47 Temperature 36.4 C L Temperature Source Oral Pulse Rate 79 Pulse Rate [Apical] 88 Pulse Rhythm Pulse Strength [Apical] Normal Respiratory Rate 19 Respiratory Effort / Characteristics Non-Labored Spontaneous Respiratory Depth Normal Respiratory Pattern Regular Blood Pressure Blood Pressure [Right Arm] 100/51 L Blood Pressure Mean Blood Pressure Mean [Right Arm] 67 Pulse Oximetry 96 Oxygen Delivery Method Room Air Sepsis Recent Fever Within 48 Hours Sepsis New/Unexplained Change in Mental Status Sepsis Action Taken by Nursing 03/27/25 14:00 03/27/25 14:15 Temperature Temperature Source Pulse Rate Pulse Rate [Apical] 89 88 Pulse Rhythm Pulse Strength [Apical] Normal Respiratory Rate 17 19 Respiratory Effort / Characteristics Non-Labored Spontaneous Non-Labored Spontaneous Respiratory Depth Normal Normal Respiratory Pattern Regular Blood Pressure Blood Pressure [Right Arm] 113/57 L 112/49 L Blood Pressure Mean Blood Pressure Mean [Right Arm] 75 70 Pulse Oximetry 93 92 Oxygen Delivery Method Room Air Room Air Sepsis Recent Fever Within 48 Hours Sepsis New/Unexplained Change in Mental Status Sepsis Action Taken by [facility] Medications Current Medication List: was personally reviewed by me Laboratory Data Attestation: I reviewed the patient's lab results. 03/27/25 12:52 03/27/25 12:52 Lab Results 03/27/25 03/27/25 03/27/25 Range/Units 12:52 12:59 14:33 WBC 8.83 (4.8-10.8) K/ul RBC 3.76 L (4.20-5.40) M/uL Hgb 10.8 L (12.0-16.0) g/dl POC Hgb 10.9 L (12.0-16.0) g/dl Hct 33.1 L (37.0-47.0) % POC Hct 32 L (37-47) % MCV 88.0 (80.0-100.0) fL MCH 28.7 (25.0-34.0) pg MCHC 32.6 (32.0-36.0) g/dL RDW Std Deviation 41.4 (36.4-46.3) fL RDW Coeff of Arron 13.1 (11.5-14.5) % Plt Count 190 (130-400) K/uL MPV 10.7 (9.4-12.4) fL Immature Gran % (Auto) 0.2 % Neut % (Auto) 60.4 % Lymph % (Auto) 30.4 % Harnett % (Auto) 8.6 % Eos % (Auto) 0.2 % Baso % (Auto) 0.2 % Neut # (Auto) 5.33 (1.40-6.50) K/uL Lymph # (Auto) 2.68 (1.20-3.40) K/uL Harnett # (Auto) 0.76 H (0.11-0.59) K/uL Eos # (Auto) 0.02 (0.00-0.50) K/uL Baso # (Auto) 0.02 (0.00-0.20) K/uL Immature Gran # (Auto) 0.02 (0.01-0.20) K/uL PT 11.9 (9.0-12.0) Seconds INR 1.1 (0.9-1.1) APTT 35 H (21-31) Seconds PTT Ratio 1.3 VBG pH 7.37 (7.36-7.41) VBG pCO2 44 (38-50) mmHg VBG pO2 39 mmHg VBG HCO3 25 mmol/L VBG O2 Saturation 66.8 % VBG Base Excess -0.2 mEq/L POC Sodium 136 (135-144) mmol/L Sodium 135 L (136-145) mmol/L POC Potassium 4.1 (3.3-5.0) mmol/L Potassium 4.1 (3.5-5.1) mmol/L POC Chloride 100 L (101-112) mmol/L Chloride 102 (98-107) mmol/L Carbon Dioxide 26 (21-32) mmol/L POC Total CO2 23 L (24-31) mmol/L Anion Gap 7 (3-11) POC Anion Gap 19.0 (16-25) mmol/L POC BUN 43 H (7-18) mg/dl BUN 47 H (6-23) mg/dl Creatinine 0.62 (0.6-1.2) mg/dl POC Creatinine 0.8 (0.6-1.3) mg/dl Est Cr Clr Drug Dosing 58.5 ml/min eGFR 85.07 BUN/Creatinine Ratio 75.8 H (10-20) Glucose 130 H (70-99(Fasting)) mg/dl POC Glucose (other) 125 H (70-99) mg/dl Lactate 2.1 H* 1.2 (0.4-2.0) mmol/L Calcium 8.3 L (8.6-10.3) mg/dl POC Ioniz Calcium [place] 1.12 (1.12-1.32) mmol/l Magnesium 1.7 (1.7-2.4) mg/dl Total Bilirubin 0.5 (0.2-1.0) mg/dl Direct Bilirubin 0.2 (0-0.2) mg/dl AST 16 (13-39) U/L ALT 13 (7-52) U/L Alkaline Phosphatase 83 (34-104) U/L Troponin I High Sens 14.1 H (0-14) pg/ml Total Protein 5.7 L (6.0-8.3) gm/dl Albumin 3.2 L (3.4-5.0) gm/dl Procalcitonin 0.09 (0-0.5) ng/ml Blood Type O Positive Antibody Screen NEGATIVE Administered Medications Discontinued Medications Sodium Chloride (Nss) 1,000 mls @ 999 mls/hr IV .Q1H1M ONE Stop: 03/27/25 13:45 Last Infusion: 03/27/25 14:16 Dose: Infused Documented By: Admin: 03/27/25 13:08 Dose: 999 mls/hr Documented By: SELENE Pantoprazole Sodium (Protonix) 40 mg in 10 mls @ 5 mls/min IV NOW ONE Stop: 03/27/25 12:47 Last Admin: 03/27/25 13:15 Dose: 5 mls/min Documented By: SELENE Famotidine (Pepcid 20mg Iv Push) 20 mg in 5 mls @ 2.5 mls/min IV NOW STA Stop: 03/27/25 12:47 Last Admin: 03/27/25 13:12 Dose: 2.5 mls/min Documented By: SELENE Piperacillin Sod/Tazobactam Sod (Zosyn) 4.5 gm in 100 mls @ 200 mls/hr IV NOW ONE; Protocol Stop: 03/27/25 13:21 Last Infusion: 03/27/25 14:15 Dose: Infused Documented By: Admin: 03/27/25 13:45 Dose: 200 mls/hr Documented By: SELENE Ioversol (Optiray 320 125ml) 112 ml IV ONCE ONE Stop: 03/27/25 13:25 Last Admin: 03/27/25 13:24 Dose: 112 ml Documented By: SUJATA Ondansetron HCl (Ondansetron Inj 2 Mg/Ml 2 Ml Vial) 4 mg IV NOW STA Stop: 03/27/25 12:46 Last Admin: 03/27/25 13:14 Dose: 4 mg Documented By: SELENE Imaging Data Attestation: I personally reviewed and interpreted this imaging study as follows: My Impression: 1 view chest x-ray was obtained in the emergency department. My interpretation is no free air or definite filtrate, final report below. Radiologist's Impression: Chest X-Ray 03/27/25 12:45 XR chest 1V portable CLINICAL HISTORY: Sepsis. COMPARISON STUDY: Chest CT November 05, 2015. Chest radiograph August 31, 2024. FINDINGS: No pneumothorax or pleural effusion is present. Cardiomediastinal silhouette is stable. No consolidation is present. Mild interstitial thickening is similar to prior exam. IMPRESSION: 1. No consolidation. 2. Mild interstitial thickening, similar to prior chest radiograph. This favors interstitial lung disease however a superimposed infectious process cannot be excluded. ACT 112: Negative or not required by law. Electronically signed by: Good Molina M.D. 03/27/2025 1:40 PM Abdomen/Pelvis CTA 03/27/25 12:52 CT angio abdomen pelvis w con CLINICAL HISTORY: 89 years-old Female with UGIB acute upper GI bleed COMPARISON STUDY: CT abdomen and pelvis 07/19/2024 TECHNIQUE: Following the IV administration of 112 cc of Optiray, CT angiogram of the abdomen and pelvis was performed from the lung bases the proximal femora. Images are reviewed in the axial, sagittal, and coronal planes. 3-D MIPS images are created and assessed. All measurements were obtained according to NASCET criteria. IV contrast was administered without complication. A dose lowering technique was utilized adhering to the principles of ALARA. CT DOSE: 1639.05 mGy.cm FINDINGS: CT ABDOMEN/PELVIS: Chronic bibasilar tree-in-bud nodules with subpleural reticulation and cystic change along with areas of bronchiectasis. 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 No pneumatosis or pneumoperitoneum. Unremarkable spleen, pancreas and adrenal glands. Mildly distended gallbladder. Liver is within normal limits. Patency of the hepatic and portal veins. 9 mm enhancing focus within the right hepatic lobe on image 120 series 5 is unchanged and favored to be benign. 4.1 cm right renal cyst. No hydronephrosis. Urinary bladder is within normal limits. Nonspecific thickening of the postmenopausal endometrium, 10 mm. Probable small uterine fibroid, 1.3 cm. No lymphadenopathy. Wall thickening of the distal stomach with partial distention. No adjacent inflammatory stranding. The duodenum appears unremarkable. Extensive colonic diverticulosis without acute diverticulitis. Normal appendix. Mild wall thickening of the hepatic flexure with partial distention. No ascites. Unremarkable soft tissues. No acute fracture. Mild mid lumbar dextroscoliosis. Subcentimeter lymph nodes adjacent to the distal stomach. CTA: Mild cardiomegaly with mitral annular calcifications. Normal caliber of the descending thoracic aorta. There is rddm-ux-cmugikjc atherosclerosis of the aorta and branch vessels. No abdominal aortic aneurysm or dissection. Patency with normal caliber of the iliac and imaged femoral arteries. Patent celiac trunk, superior and inferior mesenteric arteries. Replaced hepatic artery. Patent bilateral duplicated renal arteries. No aneurysm, dissection, high-grade stenosis, arterial closure or active extravasation. IMPRESSION: 1. Nonspecific wall thickening of the distal stomach without adjacent inflammatory stranding or pneumoperitoneum. This may be secondary to partial distention, however considering history of upper GI bleed, findings could be correlated with endoscopy to exclude gastritis versus peptic ulcer disease. 2. No bowel obstruction. 3. Atherosclerosis of the abdominal aorta and branch vessels without aneurysm, dissection, high-grade stenosis, arterial occlusion or active extravasation. 4. Extensive colonic diverticulosis. 5. Nonspecific pathologic thickening of the postmenopausal endometrium. Follow- up with gynecology recommended. 6. Additional findings as above. ACT 112: Negative or not required by law. The above report was generated using voice recognition software. It may contain grammatical, syntax or spelling errors. Electronically signed by: Tony Carrillo M.D. 03/27/2025 2:24 PM Discharge Plan Visit Data Chief Complaint: Vomiting Stated Complaint: DIZZY, NAUSA ED Provider: Hussein Pradhan Discharge Problem: Acute upper gastrointestinal bleeding, Anemia, Abdominal pain, Vomiting Patient Disposition: Being Evaluated by Hospitalist Condition: Fair Forms Stand Alone Forms: [facility] Prescriptions Prescriptions: No Action Eliquis 5 mg tablet 5 mg PO BID Qty: 180 3RF melatonin 10 mg tablet 10 mg PO HS PRN (Reason: insomnia) methocarbamol 500 mg tablet 500 mg PO DAILY PRN (Reason: Pain) azelastine 137 mcg (0.1 %) spray,non-aerosol 1 spray INTRANASAL DAILY PRN (Reason: Allergy Symptoms) qfhmtib-uqywqhicnrqml-iqqudalr [Excedrin Migraine] 250-250-65 mg Tablet 1 tab PO Q6H PRN (Reason: Headache) doxycycline hyclate 100 mg capsule 100 mg PO BID Rx Instructions: Start Date 03/19/25 x14 day supply Referrals Referrals: Ce Hernandez DO [Primary Care Provider] -
[2025-03-27 13:01] LABS: Base Excess VBG -0.2 mEq/L; HCO3 VBG 25 mmol/L; Oxygen Saturation VBG 66.8 %; PCO2 VBG 44 mmHg (38-50); PO2 VBG 39 mmHg; pH VBG 7.37 (7.36-7.41)
[2025-03-27 13:08] LABS: Hematocrit (blood only) 33.1 % (37.0-47.0); Hemoglobin 10.8 g/dl (12.0-16.0); Immature Granulocytes # (auto) 0.02 K/uL (0.01-0.20); Immature Granulocytes % (auto) 0.2 %; Mean Corpuscular Hemoglobin 28.7 pg (25.0-34.0); Mean Corpuscular Volume 88.0 fL (80.0-100.0); Platelet Count 190 K/uL (130-400); RDW Standard Deviation 41.4 fL (36.4-46.3); Red Blood Count 3.76 M/uL (4.20-5.40); White Blood Count 8.83 K/ul (4.8-10.8)
[2025-03-27] MEDS: SODIUM CHLORIDE 0.9% 1,000 ML IV ONE (13:08)
[2025-03-27] MEDS: FAMOTIDINE 20MG IV PUSH 20 MG/5 ML SYR IV STA (13:12)
[2025-03-27] MEDS: ONDANSETRON INJ 2 MG/ML 2 ML VIAL IV STA (13:14)
[2025-03-27] MEDS: PANTOprazole 40 MG/10 ML SYR IV ONE (13:15)
[2025-03-27] MEDS: OPTIRAY 320 125ml IV ONE (13:24)
[2025-03-27 13:30] LABS: Alanine Aminotransferase 13.0 U/L (7-52); Alkaline Phosphatase 83.0 U/L (34-104); Anion Gap 7.0 (3-11); Bilirubin,Total 0.5 mg/dl (0.2-1.0); Blood Urea Nitrogen 47.0 mg/dl (6-23); Calcium 8.3 mg/dl (8.6-10.3); Carbon Dioxide 26.0 mmol/L (21-32); Chloride 102.0 mmol/L (98-107); Creatinine Clr Calc Pharmacy 58.5 ml/min; Glucose 130.0 mg/dl (70-99(Fasting)); Magnesium 1.7 mg/dl (1.7-2.4); Potassium 4.1 mmol/L (3.5-5.1); Sodium 135.0 mmol/L (136-145); Total Protein 5.7 gm/dl (6.0-8.3)
[2025-03-27 13:36] LABS: INR 1.1 (0.9-1.1); Partial Thromboplastin Time 35 Seconds (21-31); Prothrombin Time 11.9 Seconds (9.0-12.0)
--- NOTE | 2025-03-27 13:41 | XRay Report ---
XR chest 1V portable CLINICAL HISTORY: Sepsis. COMPARISON STUDY: Chest CT November 05, 2015. Chest radiograph August 31, 2024. FINDINGS: No pneumothorax or pleural effusion is present. Cardiomediastinal silhouette is stable. No consolidation is present. Mild interstitial thickening is similar to prior exam. IMPRESSION: 1. No consolidation. 2. Mild interstitial thickening, similar to prior chest radiograph. This favors interstitial lung dis ease however a superimposed infectious process cannot be excluded. ACT 112: Negative or not required by law. Electronically signed by: Good Molina M.D. 03/27/2025 1:40 PM
[2025-03-27] MEDS: PIPERACILLIN/TAZOBACTAM 4.5 GM/100 ML BAG IV ONE (13:45)
--- NOTE | 2025-03-27 13:51 | Gastrointestinal Consultation ---
Date of Consultation March 27, 2025 Assessment & Plan (1) Anemia: (2) Heme positive stool: Plan Patient with emesis and pain in the setting of heme positive stools. Discussed case with Dr. Skinner who also saw and examined patient. - recommend starting PPI drip. - recommend keeping NPO at midnight. - set up EGD for further evaluation on 03/28. Will need to wait given eliquis, recommend holding. hgb stable. - follow hgb/hct and transfuse as needed. - Further recommendations to come with Supervising GI provider on medical rounds. Please see co-signature comments. Supervising Physician Co-Signing Physician Notes The patient was seen and examined with the GI physicians bankruptcy assistant. Hospital labs, data, notes were extensively reviewed. The patient presents with symptoms of coffee-ground emesis and possible melenic stool in the setting of chronic anticoagulation. This is compounded by the recent use of nonsteroidal anti- inflammatory drugs including Naprosyn for patient's headaches. Peptic ulcer disease is strongly suspected. Patient is hemodynamically stable suggesting more indolent course. Upper endoscopy will be scheduled 03/28/2025 allowing for appropriate washout of anticoagulation. Further recommendations to follow thereafter. The patient will be covered with PPI. Of note the patient has had a chronic history of diarrhea with colonoscopy last performed in 2015. It is certainly possible the patient could have microscopic colitis. Has been seen in GI clinic it was not amenable to colonoscopy. Consider reevaluation in GI clinic for this possibility. History of Present Illness Reason for Consultation: UGIB Requesting Physician: Hussein Pradhan DO History of Present Illness Patient is an 89 year old female who presented to the emergency department on 03/27 after having an episode of dark emesis. She reports upper abdominal pain alongside the emesis. She does take oral anticoagulants for her history of atrial fibrillation - last dose was 8/ PM. She did not take her morning dose. In the ED, her rectal exam was heme positive with dark stools. she admits to recent nsaid use. The remainder of the GI ROS were unremarkable. 03/27/25 hgb 10.8, hct 33.1, wbc 8.8, platelets 190, BUN 47, Cr 0.62. INR 1.1. CTA pending. Allergies Allergy/AdvReac Type Severity Reaction Status Date / Time peanut Allergy Intermediate headache Verified 03/27/25 14:38 erythromycin base Allergy Unknown Unknown - Unverified 03/27/25 14:38 Very old allergy house dust Allergy Unknown Verified 03/27/25 14:38 pollen extracts Allergy Unknown Verified 03/27/25 14:38 Home Medications Medication Instructions Recorded Confirmed Type melatonin 10 mg tablet 10 mg PO HS PRN insomnia 06/08/19 03/27/25 History apixaban 5 mg tablet (Eliquis) 5 mg PO BID #180 tabs 09/27/24 03/27/25 Rx ipdvodl-rrkrhngospmgq-xoxlpeum 250 1 tab PO Q6H PRN Headache 03/27/25 03/27/25 History mg-250 mg-65 mg tablet (Excedrin Migraine) azelastine 137 mcg (0.1 %) nasal 1 spray intranasal DAILY PRN 03/27/25 03/27/25 History spray Allergy Symptoms doxycycline hyclate 100 mg capsule 100 mg PO BID 03/27/25 03/27/25 History methocarbamol 500 mg tablet 500 mg PO DAILY PRN Pain 03/27/25 03/27/25 History Patient History Medical History Acute pharyngitis Bronchiectasis Cholelithiasis Cough Encounter for routine pelvic examination Fatigue Insomnia Left knee DJD Paroxysmal atrial fibrillation 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 Recurrent urinary tract infection Urinary tract infection symptoms Surgical History History of bronchoscopy History of cataract surgery History of knee replacement Family History Mother Cancer Father Cancer Son Cancer Daughter Allergies Other No family history of adverse response to anesthesia No family history of bleeding disorder Social History Smoking Status: Never smoker Do You Dip or Chew Tobacco: No; Hx Alcohol Use: Yes Alcohol Intake Frequency: Monthly or Less Hx Substance Use: No Preferred Language: Martiniquais Feels Safe at Home: Yes Review of Systems Review of Systems: All systems reviewed & are unremarkable except as noted in HPI & below Physical Exam Constitutional: WD/WN, vitals as above Respiratory: normal respiratory effort, lungs clear to auscultation Cardiovascular: Rate/Rhythm: regular rate and regular rhythm Gastrointestinal (Abdomen): normal bowel sounds, soft, nontender, no hepatosplenomegaly Psychiatric: Orientation: alert and oriented x 3 Affect: euthymic affect Results & Data Vital Signs (Past 12 Hours) Vital Signs Temp Pulse Pulse Resp BP BP Pulse Ox 03/27/25 13:47 88 19 100/51 L 96 03/27/25 13:40 97.5 F L 03/27/25 13:10 79 03/27/25 13:01 88 18 114/64 95 03/27/25 12:55 91 H 21 93 03/27/25 12:39 67 15 67/42 L 96 O2 Del Method 03/27/25 13:47 Room Air 03/27/25 13:40 03/27/25 13:10 03/27/25 13:01 Room Air 03/27/25 12:55 Room Air 03/27/25 12:39 Room Air Coding Level of Care Code 88629 INT INP/OBS CARE 2/55MIN Diagnoses Anemia D64.9 Heme positive stool R19.5
--- NOTE | 2025-03-27 14:25 | CT Scan Report ---
CT angio abdomen pelvis w con CLINICAL HISTORY: 89 years-old Female with UGIB acute upper GI bleed COMPARISON STUDY: CT abdomen and pelvis 07/19/2024 TECHNIQUE: Following the IV administration of 112 cc of Optiray, CT angiogram of the abdomen and pelv is was performed from the lung bases the proximal femora. Images are reviewed in the axial, sagittal, and coronal planes. 3-D MIPS images are created and assessed. All measurements were obtained accordi ng to NASCET criteria. IV contrast was administered without complication. A dose lowering technique was utilized adhering to the principles of ALARA. CT DOSE: 1639.05 mGy.cm FINDINGS: CT ABDOMEN/PELVIS: Chronic bibasilar tree-in-bud nodules with subpleural reticulation and cystic bryant ge along with areas of bronchiectasis. 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 No pneumatosis or pneumoperitoneum. Unremarkable spleen, pancreas and adre nal glands. Mildly distended gallbladder. Liver is within normal limits. Patency of the hepatic and p ortal veins. 9 mm enhancing focus within the right hepatic lobe on image 120 series 5 is unchanged an d favored to be benign. 4.1 cm right renal cyst. No hydronephrosis. Urinary bladder is within normal limits. Nonspecific thic kening of the postmenopausal endometrium, 10 mm. Probable small uterine fibroid, 1.3 cm. No lymphaden opathy. Wall thickening of the distal stomach with partial distention. No adjacent inflammatory stran ding. The duodenum appears unremarkable. Extensive colonic diverticulosis without acute diverticuliti s. Normal appendix. Mild wall thickening of the hepatic flexure with partial distention. No ascites. Unremarkable soft tissues. No acute fracture. Mild mid lumbar dextroscoliosis. Subcentimeter lymph no joey adjacent to the distal stomach. CTA: Mild cardiomegaly with mitral annular calcifications. Normal caliber of the descending thoracic aorta. There is rypi-al-ywhlehbt atherosclerosis of the aorta and branch vessels. No abdominal aortic aneurysm or dissection. Patency with normal caliber of the iliac and imaged femoral arteries. Patent celiac trunk, superior and inferior mesenteric arteries. Replaced hepatic artery. Patent bilateral d uplicated renal arteries. No aneurysm, dissection, high-grade stenosis, arterial closure or active ex travasation. IMPRESSION: 1. Nonspecific wall thickening of the distal stomach without adjacent inflammatory stranding or pneum operitoneum. This may be secondary to partial distention, however considering history of upper GI ble ed, findings could be correlated with endoscopy to exclude gastritis versus peptic ulcer disease. 2. No bowel obstruction. 3. Atherosclerosis of the abdominal aorta and branch vessels without aneurysm, dissection, high-grade stenosis, arterial occlusion or active extravasation. 4. Extensive colonic diverticulosis. 5. Nonspecific pathologic thickening of the postmenopausal endometrium. Follow-up with gynecology rec ommended. 6. Additional findings as above. ACT 112: Negative or not required by law. The above report was generated using voice recognition software. It may contain grammatical, syntax o r spelling errors. Electronically signed by: Tony Carrillo M.D. 03/27/2025 2:24 PM
--- NOTE | 2025-03-27 16:41 | History & Physical Report ---
Date of Service March 27, 2025 Assessment & Plan (1) Vomiting: (2) Acute upper gastrointestinal bleeding: Plan #UGIB - admit to inpt with tele - Hgb q6h - protonix 40mg IV BID - NPO - GI on board, plan for EGD tomorrow - hold eliquis, discussed stroke risk with pt and daughter - avoid NSAIDs - Hgb currently stable - IVF #AFib - hold eliquis #Recent dental surgery - pt is to take Doxy 100mg po bid for (?10 days, pt states she took about 7 days), will order IV doxy x3 more days, daughter to follow up on remaining doses #DVT ppx: SCDs, pharmacologic agents contraindicated as pt is having GIB History of Present Illness Chief Complaint: vomiting and dizzy Primary Care Provider: Ce Baez, DO 89 yo F with PMHx AFib on eliquis presents to the hospital for the evaluation of vomiting grainy material and feeling dizzy since then. She states that the episode occurred around 2-3 am this morning. She reports darker stool but not black or tarry. She noted she was very dizzy every time she was in upright position and lying down helped. She has some RUQ pain under the ribs that she describes as achy in nature. She notes she takes naprosyn and ibuprofen 1-2 times per week along with Headache ease?(which has aspirin, ibuprofen, caffeine) as well. On presentation, she was hypotensive, but responded well to fluids. She had heme positive stool. CTA abdomen did not reveal acute bleeding but showed some nonspecific thickening of the distal stomach. She was evaluated by GI and plan is for EGD tomorrow. Allergies Allergy/AdvReac Type Severity Reaction Status Date / Time peanut Allergy Intermediate headache Verified 03/27/25 14:38 erythromycin base Allergy Unknown Unknown - Unverified 03/27/25 14:38 Very old allergy house dust Allergy Unknown Verified 03/27/25 14:38 pollen extracts Allergy Unknown Verified 03/27/25 14:38 Home Medications Medication Instructions Recorded Confirmed Type melatonin 10 mg tablet 10 mg PO HS PRN insomnia 06/08/19 03/27/25 History apixaban 5 mg tablet (Eliquis) 5 mg PO BID #180 tabs 09/27/24 03/27/25 Rx bqkbgwc-ajellplkykwbj-pskitfor 250 1 tab PO Q6H PRN Headache 03/27/25 03/27/25 History mg-250 mg-65 mg tablet (Excedrin Migraine) azelastine 137 mcg (0.1 %) nasal 1 spray intranasal DAILY PRN 03/27/25 03/27/25 History spray Allergy Symptoms doxycycline hyclate 100 mg capsule 100 mg PO BID 03/27/25 03/27/25 History methocarbamol 500 mg tablet 500 mg PO DAILY PRN Pain 03/27/25 03/27/25 History Past Med/Surg History Problem List (Updated 03/27/25 @ 15:12 by Hussein Pradhan DO) Vomiting (Acute) Abdominal pain (Acute) Anemia (Acute) Acute upper gastrointestinal bleeding (Acute) Heme positive stool Anemia Lightheadedness Shortness of breath Lumbar spondylosis Increased urinary frequency Right knee DJD Abnormal CXR Chronic sinusitis Bronchiectasis Chronic cough Allergic rhinitis due to allergen Anticoagulant long-term use Atrial fibrillation Palpitation Medical History Acute pharyngitis Bronchiectasis Cholelithiasis Cough Encounter for routine pelvic examination Fatigue Insomnia Left knee DJD Paroxysmal atrial fibrillation 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 Recurrent urinary tract infection Urinary tract infection symptoms Surgical History History of bronchoscopy History of cataract surgery History of knee replacement Family History Mother Cancer Father Cancer Son Cancer Daughter Allergies Other No family history of adverse response to anesthesia No family history of bleeding disorder Social History Smoking Status: Never smoker Do You Dip or Chew Tobacco: No; Hx Alcohol Use: Yes Alcohol Intake Frequency: Monthly or Less Hx Substance Use: No Preferred Language: [place] Feels Safe at Home: Yes Review of Systems Review of Systems: Comprehensive ROS completed and is otherwise negative. Physical Exam Physical Exam: Gen: no acute distress, lying in bed comfortable HEENT: NC/AT, MMM, pallor , mild bruising around the left jaw Lungs: nonlabored breathing, CTAB CVS: s1s2nl, RRR Abd: nl bowel sounds, soft, NT / ND : no mendosa Ext: no edema Neuro: AAOx3 Psych: calm cooperative Results & Data Results & Data Vital Signs (Past 12 Hours) Vital Signs Temp Pulse Pulse Resp BP BP Pulse Ox 03/27/25 15:09 91 H 21 112/49 L 97 03/27/25 14:15 88 19 112/49 L 92 03/27/25 14:00 89 17 113/57 L 93 03/27/25 13:47 88 19 100/51 L 96 03/27/25 13:40 36.4 C L 03/27/25 13:10 79 03/27/25 13:01 88 18 114/64 95 03/27/25 12:55 91 H 21 93 03/27/25 12:39 67 15 67/42 L 96 O2 Del Method 03/27/25 15:09 03/27/25 14:15 Room Air 03/27/25 14:00 Room Air 03/27/25 13:47 Room Air 03/27/25 13:40 03/27/25 13:10 03/27/25 13:01 Room Air 03/27/25 12:55 Room Air 03/27/25 12:39 Room Air PG Care Time/CCT Total # of Minutes Spent Total Time Spent with Patient: Total time spent is greater than 50% in coordination of care (as documented) at patient's floor/unit and/or counseling patient: Coding Level of Care Code 70696 INT INP/OBS CARE 3/75MIN Diagnoses Vomiting R11.10 Acute upper gastrointestinal bleeding K92.2
[2025-03-27] MEDS: PLASMA-LYTE A 1,000 ML IV SCH (18:21)
[2025-03-27] MEDS: DOXYCYCLINE HYCLATE 100 MG in DEXTROSE 5% MINI-B 100 ML IV SCH (18:24)
[2025-03-27 18:39] LABS: Hematocrit (blood only) 29.0 % (37.0-47.0); Hemoglobin 9.6 g/dl (12.0-16.0)
[2025-03-27] MEDS: PANTOprazole 40 MG/10 ML SYR IV SCH (20:35)
[2025-03-27 22:29] LABS: Appearance Urine Clear (Clear); Bacteria Urine Automated None Seen (None Seen); Cast Urine Automated 0-2 /lpf (0-2); Epithelial Cell Urine Auto 0-2 /hpf (0-2); Glucose Urine UA Negative (Negative); RBC Urine Automated 0-2 /hpf (0-2)
[2025-03-28 00:58] LABS: Hematocrit (blood only) 25.3 % (37.0-47.0); Hemoglobin 8.3 g/dl (12.0-16.0)
[2025-03-28 06:02] LABS: Hematocrit (blood only) 28.4 % (37.0-47.0); Hemoglobin 9.4 g/dl (12.0-16.0); Immature Granulocytes # (auto) 0.00 K/uL (0.01-0.20); Immature Granulocytes % (auto) 0.0 %; Mean Corpuscular Hemoglobin 29.0 pg (25.0-34.0); Mean Corpuscular Volume 87.7 fL (80.0-100.0); Platelet Count 154 K/uL (130-400); RDW Standard Deviation 41.6 fL (36.4-46.3); Red Blood Count 3.24 M/uL (4.20-5.40); White Blood Count 4.96 K/ul (4.8-10.8)
[2025-03-28 06:18] LABS: Anion Gap 4.0 (3-11); Blood Urea Nitrogen 29.0 mg/dl (6-23); Calcium 8.4 mg/dl (8.6-10.3); Carbon Dioxide 28.0 mmol/L (21-32); Chloride 106.0 mmol/L (98-107); Creatinine Clr Calc Pharmacy 55.8 ml/min; Glucose 84.0 mg/dl (70-99(Fasting)); Magnesium 1.9 mg/dl (1.7-2.4); Potassium 3.6 mmol/L (3.5-5.1); Sodium 138.0 mmol/L (136-145)
--- NOTE | 2025-03-28 07:13 | Anesthesiology Consultation ---
Date of Service March 28, 2025 Assessment & Plan (1) Encounter for pre-operative examination: Chart Review Chart Review: Acceptable Risk for Surgery History Surgery Operation Date: 03/28/25 16:30 Proposed Procedures p Esophagogastroduodenoscopy Dr. Skinner - Travis Skinner MD Height/Weight Height: 5 ft 4 in Weight: 68.6 kg Allergies Allergy/AdvReac Type Severity Reaction Status Date / Time peanut Allergy Intermediate headache Verified 03/27/25 14:38 erythromycin base Allergy Unknown Unknown - Unverified 03/27/25 14:38 Very old allergy house dust Allergy Unknown Verified 03/27/25 14:38 pollen extracts Allergy Unknown Verified 03/27/25 14:38 Medications Home Medications Medication Instructions Recorded Confirmed Last Taken melatonin 10 mg tablet 10 mg PO HS PRN insomnia 06/08/19 03/27/25 Unknown apixaban 5 mg tablet (Eliquis) 5 mg PO BID #180 tabs 09/27/24 03/27/25 03/26/25 ywxbnqg-vrgxszwevxaib-brsprbmy 250 1 tab PO Q6H PRN Headache 03/27/25 03/27/25 Unknown mg-250 mg-65 mg tablet (Excedrin Migraine) azelastine 137 mcg (0.1 %) nasal 1 spray intranasal DAILY PRN 03/27/25 03/27/25 Unknown spray Allergy Symptoms doxycycline hyclate 100 mg capsule 100 mg PO BID 03/27/25 03/27/25 03/26/25 methocarbamol 500 mg tablet 500 mg PO DAILY PRN Pain 03/27/25 03/27/25 Unknown Active Medications Generic Name Dose Route Start Last Admin Trade Name Vickeyq PRN Reason Stop Dose Admin Pantoprazole Sodium 40 mg in 10 mls @ 5 mls/min 03/27/25 21:00 03/27/25 20:35 Protonix IV 04/26/25 20:59 5 mls/min BID BRISEIDA Administration Doxycycline Hyclate 100 mg/ 100 mls @ 50 mls/hr 03/27/25 16:45 03/28/25 05:24 Dextrose IV 04/01/25 16:44 50 mls/hr Q12H BRISEIDA Administration Parenteral Electrolytes 1,000 mls @ 80 mls/hr 03/27/25 17:28 03/28/25 05:36 Plasma-Lyte A Ph 7.4 IV 03/30/25 17:27 80 mls/hr .[id number] BRISEIDA Administration Past Medical History Medical History (Updated 03/28/25 @ 07:13 by Rambo Beyer MD) Palpitation Anticoagulant long-term use Anemia Acute upper gastrointestinal bleeding Bronchiectasis Cholelithiasis Cough Fatigue Insomnia Left knee DJD Paroxysmal atrial fibrillation 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 Recurrent urinary tract infection Past Family History Family History Mother Cancer Father Cancer Son Cancer Daughter Allergies Other No family history of adverse response to anesthesia No family history of bleeding disorder Past Surgical History Surgical History History of bronchoscopy History of cataract surgery History of knee replacement Social History Smoking Status: Never smoker Do You Dip or Chew Tobacco: No Hx Alcohol Use: Yes Alcohol type: wine alcohol intake frequency: a few times a month Hx Substance Use: No substance use type: does not use Physical Exam Vital Signs Last Vital Signs Temp 36.9 C 03/28/25 03:53 Pulse 68 03/28/25 03:53 Resp 20 03/28/25 03:53 BP 127/63 03/28/25 03:53 Pulse Ox 93 03/28/25 03:53 O2 Del Method Room Air 03/28/25 03:53 Testing Laboratory Results 03/28/25 05:36 03/28/25 05:36 PT 11.9 Seconds (9.0-12.0) 03/27/25 12:52 INR 1.1 (0.9-1.1) 03/27/25 12:52 APTT 35 Seconds (21-31) H 03/27/25 12:52 Urine Color Yellow 03/27/25 22:10 Urine Appearance Clear (Clear) 03/27/25 22:10 Urine pH 6.0 (4.5-7.5) 03/27/25 22:10 Ur Specific [place] 1.044 (1.000-1.030) H 03/27/25 22:10 Urine Protein Negative (Negative) 03/27/25 22:10 Urine Glucose (UA) Negative (Negative) 03/27/25 22:10 Urine Ketones Negative (Negative) 03/27/25 22:10 Urine Nitrite Negative (Negative) 03/27/25 22:10 Ur Leukocyte Esterase 1+ (Negative) H 03/27/25 22:10 Urine WBC (Auto) 6-10 /hpf (0-5) H 03/27/25 22:10 Urine RBC (Auto) 0-2 /hpf (0-2) 03/27/25 22:10 U Hyaline Cast (Auto) 0-2 /lpf (0-2) 03/27/25 22:10 U Epithel Cells (Auto) 0-2 /hpf (0-2) 03/27/25 22:10 Urine Bacteria (Auto) None Seen (None Seen) 03/27/25 22:10 Blood Type O Positive 03/27/25 12:52 Antibody Screen NEGATIVE 03/27/25 12:52 Electrocardiogram Date: 03/27/25 Findings: + NSR @ (89) Echocardiogram Date: 10/20/24 EF: 65-70% LV Function: normal Valvular Disease: + AI (mild) and + MR (mild)
--- NOTE | 2025-03-28 10:47 | History & Physical Bridge Note ---
Date of Service March 28, 2025 History & Physical Bridge Note I have examined the patient, reviewed the History & Physical and in the interval since the performance of the History & Physical I have noted the following changes of clinical significance: no changes noted Patient has been NPO. She reports a dark stool this AM. Keep NPO and proceed with EGD today. Supervising Physician Co-Signing Physician Notes The patient presents with coffee-ground type emesis in the background of peptic ulcer disease and anticoagulation. EGD to follow.
--- NOTE | 2025-03-28 11:36 | GI REPORT ---
[facility] Patient: MARIO SOTO : 1935 Sex at : Female Age: 89 Years Procedure: Upper GI endoscopy Date: 03/28/2025 Attending Physician: Travis Skinner MD Referring MD: Referred Self; Lorenzo Vicente Indications: - Suspected upper gastrointestinal bleeding - Melena - Coffee-ground emesis Medications: - See the Anesthesia note for documentation of the administered medications Complications: - No immediate complications. Estimated Blood Loss: - Estimated blood loss was minimal. Procedure: - Prior to the procedure, a History and Physical was performed, and patient medications and allergies were reviewed. The patient's tolerance of previous anesthesia was also reviewed. The risks and benefits of the procedure and the sedation options and risks were discussed with the patient. All questions were answered, and informed consent was obtained. Prior Anticoagulants: The patient has taken Eliquis (apixaban), last dose was 2 days prior to procedure. ASA Grade Assessment: III - A patient with severe systemic disease. After reviewing the risks and benefits, the patient was deemed in satisfactory condition to undergo the procedure. - The egd scope was introduced through the mouth and advanced to the third part of the duodenum. - The upper GI endoscopy was accomplished without difficulty. - The patient tolerated the procedure well. Findings: - Patchy mild inflammation characterized by erythema was found in the duodenal bulb. - One 2 mm non-bleeding cratered gastric ulcer of moderate severity with adherent clot was found in the prepyloric region of the stomach. There is no evidence of perforation. Area was successfully injected with 4 mL of a 0.1 mg/mL solution of epinephrine for hemostasis. Coagulation for hemostasis using bipolar probe was successful. - Patchy moderately erythematous mucosa without bleeding was found in the entire examined stomach. This was biopsied with a cold forceps for Helicobacter pylori testing. - A 2 cm hiatal hernia was present. - A non-obstructing Schatzki ring was found in the distal esophagus. Impression: - Duodenitis, characterized by erythema. - Non-bleeding gastric ulcer with adherent clot. NSAID induced etiology. There is no evidence of perforation. Injected. Treated with bipolar cautery. - Erythematous mucosa in the stomach. Biopsied. - 2 cm hiatal hernia. - Non-obstructing Schatzki ring. Recommendation: - Await pathology results. - Avoid NSAIDS - Continue to hold anticoagulation for 24 hours and observe patient. - Full liquid diet today. - Continue present medications. Procedure Code(s): - 63358-24, Esophagogastroduodenoscopy, flexible, transoral; with control of bleeding, any method - 10515, Esophagogastroduodenoscopy, flexible, transoral; with biopsy, single or multiple Diagnosis Code(s): - K92.1, Melena (includes Hematochezia) - K92.0, Hematemesis - K29.80, Duodenitis without bleeding - T39.395S, Adverse effect of other nonsteroidal anti-inflammatory drugs [NSAID], sequela - K25.4, Chronic or unspecified gastric ulcer with hemorrhage - K31.89, Other diseases of stomach and duodenum - K44.9, Diaphragmatic hernia without obstruction or gangrene - K22.2, Esophageal obstruction CPT(R) - 202 copyright [employer]. All Rights Reserved. The CPT codes, CCI edits and ICD codes generated are intended as suggestions and were generated based on input data. These codes are preliminary and upon flux core welder review may be revised to meet current compliance and payer requirements. The provider is responsible for the final determination of appropriate codes, and modifiers. Travis Skinner MD This document has been electronically signed. Note Initiated:03/28/2025 Note Completed:03/28/2025 11:35 AM \\[email or web address]\[email or web address]\[id number]
--- NOTE | 2025-03-28 12:05 | Anesthesiology Progress Note ---
Date of Service March 28, 2025 Anesthesia Post Procedure Vital Signs Vital Signs: Temp Pulse Pulse Pulse Resp BP BP 03/28/25 11:56 72 18 119/58 L 03/28/25 11:41 66 18 147/68 H 03/28/25 11:26 85 16 134/67 03/28/25 10:31 36.7 C 69 16 111/58 L 03/28/25 08:28 36.8 C 72 18 109/59 L 03/28/25 05:56 72 03/28/25 03:53 36.9 C 68 20 127/63 03/28/25 00:23 37.1 C 83 20 98/61 L 03/27/25 23:01 98 H 03/27/25 20:00 37.0 C 79 20 03/27/25 18:30 85 03/27/25 17:28 03/27/25 17:28 36.8 C 85 12 03/27/25 17:20 81 16 126/64 03/27/25 17:18 81 16 03/27/25 17:02 89 03/27/25 17:00 96 H 17 03/27/25 16:03 92 H 24 03/27/25 15:09 91 H 21 112/49 L 03/27/25 14:15 88 19 03/27/25 14:00 89 17 03/27/25 13:47 88 19 03/27/25 13:40 36.4 C L 03/27/25 13:10 79 03/27/25 13:01 88 18 03/27/25 12:55 91 H 21 03/27/25 12:39 67 15 67/42 L BP Pulse Ox Pulse Ox O2 Del Method O2 Del Method 03/28/25 11:56 96 Room Air 03/28/25 11:41 96 Room Air 03/28/25 11:26 100 Room Air 03/28/25 10:31 94 Room Air 03/28/25 08:28 95 Room Air 03/28/25 05:56 03/28/25 03:53 93 Room Air 03/28/25 00:23 98/61 L 95 Room Air 03/27/25 23:01 03/27/25 20:00 157/78 H 95 Room Air 03/27/25 18:30 03/27/25 17:28 95 Room Air 03/27/25 17:28 103/52 L 93 Room Air 03/27/25 17:20 96 Room Air 03/27/25 17:18 126/64 96 Room Air 03/27/25 17:02 03/27/25 17:00 96 03/27/25 16:03 03/27/25 15:09 97 03/27/25 14:15 112/49 L 92 Room Air 03/27/25 14:00 113/57 L 93 Room Air 03/27/25 13:47 100/51 L 96 Room Air 03/27/25 13:40 03/27/25 13:10 03/27/25 13:01 114/64 95 Room Air 03/27/25 12:55 93 Room Air 03/27/25 12:39 96 Room Air Pain Intensity Upper Abdomen: Pain Intensity: 4 Transfer of Care Handoff Completed per policy Notes Mental Status: alert / awake / arousable Patient Amnestic to Procedure: Yes Nausea / Vomiting: adequately controlled Pain: adequately controlled Airway Patency, RR, SpO2: stable & adequate BP & HR: stable & adequate Hydration State: stable & adequate Anesthetic Complications: no major complications apparent
[2025-03-28] MEDS: LIDOCAINE 2% 2 ML VIAL/AMP(20MG/ML) INFIL ONE (13:16)
[2025-03-28] MEDS: ONDANSETRON INJ 2 MG/ML 2 ML VIAL ONE (13:17)
[2025-03-28] MEDS: PROPOFOL IV EMULSION 10 MG/ML 20 ML VIAL IV ONE (13:17)
[2025-03-28 14:21] LABS: Hematocrit (blood only) 26.3 % (37.0-47.0); Hemoglobin 8.6 g/dl (12.0-16.0)
--- NOTE | 2025-03-28 16:44 | Hospitalist Progress Note ---
Date of Service March 28, 2025 Assessment & Plan (1) Encounter for pre-operative examination: Plan This 89 yo F with PMHx AFib on eliquis presents to the hospital for the evaluation of vomiting grainy material and feeling dizzy since then. She states that the episode occurred around 2-3 am this morning. She reports darker stool but not black or tarry. She noted she was very dizzy every time she was in upright position and lying down helped. She has some RUQ pain under the ribs that she describes as achy in nature. She notes she takes naprosyn and ibuprofen 1-2 times per week along with Headache ease?(which has aspirin, ibuprofen, caffeine) as well. She is admitted for coffee-ground emesis with the concern for an upper GI bleed in the setting of chronic anticoagulation. #UGIB - patient doing well this morning without repeat episodes of vomiting. Has been NPO since admission, otherwise has been feeling well. Denies abdominal pain, N/V. - telemetry monitoring overnight NSR with PVCs otherwise no actionable events - H&H stable 9.4 & 28% this morning. BUN improving to 29 (prev 47). Patient remains hemodynamically stable and without overt signs of bleeding on exam - EGD performed today showing duodenitis, erythematous stomach mucosa, and a non-bleeding gastric ulcer with adherent clot, likely NSAID induced etiology. There is no evidence of perforation. It was injected with epinephrine and treated with bipolar cautery - diet advanced to soft mechanical diet - tolerating well - will continue to hold anticoagulation for 24 hours, per GI - will continue observation due to anticoagulation hold - continue IV protonix 40 mg bid - CBC qAM - continue IV fluids with plasma-lyte 80 mL/hr - avoid NSAIDs #AFib - hold eliquis for 24 hours post-EGD w/ biopsy - continue telemetry monitoring #Recent dental surgery - pt is to take Doxy 100mg po bid for (?10 days, pt states she took about 7 days) - continue IV doxy for 2 more days, daughter to follow up on remaining doses #DVT ppx: SCDs, pharmacologic agents contraindicated as pt is having GIB Admission and Anticipated Discharge Date Admission Date: March 27, 2025 Supervising Physician Co-Signing Physician Notes I personally examined the patient and verified all erwin points of history and exam, discussed case, and agree with decision making with Dr Nidhi Omalley post EGD. No new issues. Vitals noted, in general she is resting comfortably appears to be in no distress. HEENT normocephalic atraumatic. Breathing unlabored no accessory muscle use. EGD noted. Upper GI bleeding/peptic ulcer disease/possible acute blood loss anemiaappears stable now. Status post EGD. Anticoagulation on hold. On Protonix. Follow. Otherwise as above. Subjective Patient seen and examined at bedside this morning. Alert, awake and responding appropriately. No overnight events. No acute concerns. Reports feeling well this morning. No longer having episodes of vomiting. Moving bowels, ambulating, and voiding without concern. Denies chest pain, shortness of breath, abdominal pain Review of Systems Review of Systems: All systems reviewed & are unremarkable except as noted in HPI & below Physical Exam Constitutional: WD/WN, vitals as above Respiratory: normal respiratory effort, lungs clear to auscultation Cardiovascular: RRR, no murmur, no edema Gastrointestinal (Abdomen): normal bowel sounds, soft, nontender, no hepa tosplenomegaly Musculoskeletal: Head/Neck/Chest: normocephalic and head atraumatic Extremities: extremities normal to inspection Skin: no rashes, warm and dry Neurologic: no focal neurological deficits Psychiatric: A+Ox3, euthymic affect Results & Data Results & Data Vital Signs (Past 12 Hours) Vital Signs Temp Pulse Pulse Resp BP Pulse Ox O2 Del Method 03/28/25 16:00 36.8 C 70 20 99/49 L 96 Room Air 03/28/25 14:23 36.6 C 71 16 93/42 L 93 Room Air 03/28/25 13:15 36.4 C L 76 16 121/65 93 Room Air 03/28/25 13:04 78 03/28/25 12:45 36.3 C L 96 H 16 132/67 96 Room Air 03/28/25 12:08 36.3 C L 66 16 117/66 96 Room Air 03/28/25 11:56 72 18 119/58 L 96 Room Air 03/28/25 11:41 66 18 147/68 H 96 Room Air 03/28/25 11:26 85 16 134/67 100 Room Air 03/28/25 10:31 36.7 C 69 16 111/58 L 94 Room Air 03/28/25 08:28 36.8 C 72 18 109/59 L 95 Room Air 03/28/25 05:56 72 Resident Activity Tracking Resident Involvement: Resident Care Provided Care Provided: Adult Hospital Medicine
--- NOTE | 2025-03-28 18:06 | Billing Data ---
Date of Service March 28, 2025 Coding Level of Care Code 25734 SUB INP/OBS CARE
--- NOTE | 2025-03-28 18:07 | Billing Data ---
Date of Service March 28, 2025 Coding Level of Care Code 23053 SUB INP/OBS CARE
[2025-03-29] MEDS: MELATONIN 3 MG TAB PO PRN (00:14)
[2025-03-29 07:08] LABS: Hematocrit (blood only) 22.6 % (37.0-47.0); Hemoglobin 7.6 g/dl (12.0-16.0); Mean Corpuscular Hemoglobin 29.6 pg (25.0-34.0); Mean Corpuscular Volume 87.9 fL (80.0-100.0); Platelet Count 121 K/uL (130-400); RDW Standard Deviation 42.0 fL (36.4-46.3); Red Blood Count 2.57 M/uL (4.20-5.40); White Blood Count 3.36 K/ul (4.8-10.8)
[2025-03-29 07:25] LABS: Anion Gap 3.0 (3-11); Blood Urea Nitrogen 14.0 mg/dl (6-23); Calcium 8.1 mg/dl (8.6-10.3); Carbon Dioxide 30.0 mmol/L (21-32); Chloride 104.0 mmol/L (98-107); Creatinine Clr Calc Pharmacy 57.8 ml/min; Glucose 110.0 mg/dl (70-99(Fasting)); Potassium 3.7 mmol/L (3.5-5.1); Sodium 137.0 mmol/L (136-145)
--- NOTE | 2025-03-29 10:34 | Discharge Summary ---
Date of Service March 29, 2025 Admission HPI Per Admitting Provider 89 yo F with PMHx AFib on elidino presents to the hospital for the evaluation of vomiting grainy material and feeling dizzy since then. She states that the episode occurred around 2-3 am this morning. She reports darker stool but not black or tarry. She noted she was very dizzy every time she was in upright position and lying down helped. She has some RUQ pain under the ribs that she describes as achy in nature. She notes she takes naprosyn and ibuprofen 1-2 times per week along with Headache ease?(which has aspirin, ibuprofen, caffeine) as well. On presentation, she was hypotensive, but responded well to fluids. She had heme positive stool. CTA abdomen did not reveal acute bleeding but showed some nonspecific thickening of the distal stomach. She was evaluated by GI and plan is for EGD tomorrow. Principal Diagnosis Gen: no acute distress, lying in bed comfortable HEENT: NC/AT, MMM, pallor , mild bruising around the left jaw Lungs: nonlabored breathing, CTAB CVS: s1s2nl, RRR Abd: nl bowel sounds, soft, NT / ND : no mendosa Ext: no edema Neuro: AAOx3 Psych: calm cooperative Discharge Exam Constitutional WD/WN, vitals as above Respiratory normal respiratory effort, lungs clear to auscultation Cardiovascular RRR, no murmur, no edema Gastrointestinal (Abdomen) normal bowel sounds, soft, nontender, no hepatosplenomegaly Musculoskeletal Head/Neck/Chest: normocephalic and head atraumatic Extremities: extremities normal to inspection Skin no rashes, warm and dry Neurologic no focal neurological deficits Psychiatric A+Ox3, euthymic affect Discharge Data Allergies Allergy/AdvReac Type Severity Reaction Status Date / Time peanut Allergy Intermediate headache Verified 03/27/25 14:38 erythromycin base Allergy Unknown Unknown - Unverified 03/27/25 14:38 Very old allergy house dust Allergy Unknown Verified 03/27/25 14:38 pollen extracts Allergy Unknown Verified 03/27/25 14:38 Consultations 03/27/25 13:46 Consult Gastroenterology Stat 03/27/25 15:09 ED Decision to Admit Stat Procedures Performed Operation Date: 03/28/25 16:30 Actual Procedures s EGD Biopsy Cytology - Travis Skinner MD p EGD Hemostasis - Travis Skinner MD Ordered Studies 03/27/25 12:52 CT angio abdomen pelvis w con Stat Hospital Course (1) Upper GI bleed: (2) Atrial fibrillation: Plan This 89 yo F with PMHx AFib on eliquis presents to the hospital for the evaluation of vomiting grainy material and feeling dizzy since then. She states that the episode occurred around 2-3 am this morning. She reports darker stool but not black or tarry. She noted she was very dizzy every time she was in upright position and lying down helped. She has some RUQ pain under the ribs that she describes as achy in nature. She notes she takes naprosyn and ibuprofen 1-2 times per week along with Headache ease?(which has aspirin, ibuprofen, caffeine) as well. She is admitted for coffee-ground emesis with the concern for an upper GI bleed in the setting of chronic anticoagulation. #UGIB - patient doing well this morning without repeat episodes of vomiting. Have advanced to full diet and has been tolerating well without concerns. Denies repeat episodes of hematemesis, vomiting, abdominal pain. Has been having bowel movements, still slightly dark in color but not black or tarry. - H&H stable this morning 7.6 & 23. BUN 14. No overt sign of bleeding on exam. Patient remains hemodynamically stable and without headache/dizziness/dyspnea - EGD was performed yesterday showing duodenitis, erythematous stomach mucosa, and a non-bleeding gastric ulcer with adherent clot, likely NSAID induced etiology. There is no evidence of perforation. It was injected with epinephrine and treated with bipolar cautery. - telemetry monitoring overnight NSR with PVCs otherwise no actionable events - will continue to hold Eliquis 5 days post-EGD to ensure bleeding has resolved. - transitioned IV protonix to oral 40mg bid that patient can continue on discharge. - discussed with patient to avoid future NSAID use #AFib - telemetry monitoring during admission without actionable events. Overnight NSR with some PACs with a rate of 70s. - continue Eliquis hold for 5 day post-EGD, as above. Encouraged to f/u with PCP within 1 week to resume. #Recent dental surgery -She was to take doxycycline 100 po bid for 10 days post dental surgery. Have been given 3 doses here since admission. She is to continue the rest of her abx course on discharge. #DVT ppx: SCDs, pharmacologic agents contraindicated as pt is having GIB #Dispo: home Total Time Total Time Spent Total Time Spent (In Minutes): less than 30 Total Time Includes: Examination of the Patient, Discharge Planning and Medication Reconciliation Discharge Plan Discharge Items Patient Disposition: Home - Self-Care Reason For Visit: UGIB Discharge Diagnosis: upper GI bleed/duodenitis/gastritis Condition on Discharge: Fair Activity: Resume your previous activity Non-emergency contact: Primary Care Provider Call non-emergency contact if: you have any medication questions, your symptoms worsen and your pain is not controlled Follow-up/Referrals: Ce Hernandez DO [Primary Care Provider] - 04/09/25 2:45 pm Diet: Regular Addtl Attending Provider Instructions: You were [facility] for an upper GI bleed. An EGD was completed while you were here which found inflammation of the stomach and duodenum. There was also a non- bleeding ulcer in the stomach that was treated during the scope. Start protonix 40mg oral twice daily. This has been sent to your local pharmacy Please continue your home medications as prescribed. Please avoid all NSAIDs including ibuprofen, Advil, Motrin, naproxen to avoid irritation and rebleeding of the stomach ulcer. Avoid spicy and acidic foods as well to help with symptoms and to avoid recurrence of vomiting/pain. Follow-up with your PCP within 1 week of discharge to check CBC and evaluate to resume your Eliquis Pending Studies at Discharge: No Stand-Alone Forms: My [facility] 3 day Blinds, Smoking Cessation Medications and DC Order Prescriptions: New pantoprazole 40 mg Tablet,Delayed Release (Dr/Ec) 40 mg PO BID 30 Days Qty: 60 0RF Continued melatonin 10 mg tablet 10 mg PO HS PRN (Reason: insomnia) methocarbamol 500 mg tablet 500 mg PO DAILY PRN (Reason: Pain) azelastine 137 mcg (0.1 %) spray,non-aerosol 1 spray INTRANASAL DAILY PRN (Reason: Allergy Symptoms) Changed doxycycline hyclate 100 mg capsule 100 mg PO BID Qty: 0 0RF Rx Instructions: Start Date 03/19/25 x14 day supply Held Eliquis 5 mg tablet 5 mg PO BID Qty: 180 3RF Hold Instructions: Resume on 04/02/25. hold for 5 days post-EGD to ensure bleeding has stopped. Can resume after. Please f/u with PCP within 1 week. Discontinued qvnallc-hytphhyfrwkra-ovkyjsfo [Excedrin Migraine] 250-250-65 mg Tablet 1 tab PO Q6H PRN (Reason: Headache) Discharge Orders: Discharge Order (Routine); Ordered 03/29/25 Ordered By: Danay Terrell Admission Data Admit Date/Time: 03/27/25 15:09 Attending Provider: Lorenzo Vicente Admit Provider: Laila Jimenez Primary Care Provider: Ce Hernandez Other Providers: Travis Skinner; Laila Jimenez Other Interventions: Discharge Summary Assessment (RN) Last Done: 03/28/25 11:37 Supervising Physician Co-Signing Physician Notes I personally examined the patient and verified all erwin points of history and exam, discussed case, and agree with decision making with Dr Terrell feeling reasonably well overall. Was a little bit lightheaded whenever she was getting up leaving the bathroom. No syncope. Eating well. Would very much like to go home. Discussed the case with patient as well as daughter on the phone. Vitals noted, in general she is awake and alert pleasant no distress. HEENT normocephalic atraumatic mucous membranes moist. Breathing unlabored no accessory muscle use good effort. Skin without rashes pallor or icterus. Neuro without focal deficits. Upper GI bleeding/peptic ulcer disease/ acute blood loss anemiaappears stable now. Status post EGD. Anticoagulation on hold. On Protonix. Her orthostatic symptoms certainly fit with the blood loss she has had, but overall it does not appear there is any further going on. She would like to go home, and this appea rs safe and reasonable. Discussed orthostatic protective measures such as sitting for a minute before standing, standing for a minute before walking anywhere/etc. Discussed maintaining oral hydration and discussed natural improvement on anemia with hematopoiesis. Home for now with anticoagulation on holdPCP next week. If she continues to look well feel well exam and well and her hemoglobin is stable or improved, discussed resuming anticoagulation next week. Answered all questions to the best my ability and to her/daughters satisfaction. Otherwise as above.
[2025-03-29] MEDS ORDERED: SODIUM CHLORIDE 0.9% 100 ML IV PRN (11:10)
--- NOTE | 2025-03-29 12:05 | Gastroenterology Progress Note ---
Date of Service March 29, 2025 Assessment & Plan (1) Gastric ulcer: Plan: -Continue IV PPI, can transition to Protonix 40 mg BID on d/c Admission and Anticipated Discharge Date Admission Date: March 27, 2025 Subjective Patient is an 89 yo female with coffee ground emesis/melena. She underwent an EGD on 03/28/25 that indicated duodenitis and gastric ulcer. H/H 7.6/22.6. Anticoagulation has been advised to be held x 24 hours post procedure. She is feeling well per her reports. Review of Systems Gastrointestinal: no abdominal pain, no coffee ground emesis, no hematemesis and no melena Physical Exam Constitutional: well developed Respiratory: normal respiratory effort Psychiatric: Orientation: alert and oriented x 3 Results & Data Results & Data Vital Signs (Past 12 Hours) Vital Signs Temp Pulse Pulse Resp BP Pulse Ox O2 Del Method 03/29/25 11:03 36.9 C 86 20 91/47 L 96 Room Air 03/29/25 08:34 36.8 C 89 18 93/53 L 97 Room Air 03/29/25 05:48 79 03/29/25 04:23 36.9 C 71 16 94/52 L 91 Room Air 03/29/25 01:01 74 PG Care Time/CCT Total # of Minutes Spent Total Time Spent with Patient: Total time spent is greater than 50% in coordination of care (as documented) at patient's floor/unit and/or counseling patient: Coding Level of Care Code 31015 SUB INP/OBS CARE 2/35MIN Diagnoses Gastric ulcer K25.9
--- NOTE | 2025-03-29 17:43 | Billing Data ---
Date of Service March 29, 2025 Coding Level of Care Code 00178 IN/OBS DISCH 30 MIN/LESS
--- NOTE | 2025-03-30 06:05 | Electrocardiogram Report ---
Test Reason : Blood Pressure : */* mmHG Vent. Rate : 89 BPM Atrial Rate : 89 BPM P-R Int : 164 ms QRS Dur : 72 ms QT Int : 370 ms P-R-T Axes : 54 21 49 degrees QTcB Int : 450 ms Normal sinus rhythm Normal ECG When compared with ECG of 23-Nov-2024 09:31, No significant change was found Confirmed by Jesse Osorio ([id number]) on 03/30/2025 6:05:08 AM Referred By: Confirmed By: Jesse Osorio
--- NOTE | 2025-03-30 06:06 | Electrocardiogram Report ---
Test Reason : Blood Pressure : */* mmHG Vent. Rate : 69 BPM Atrial Rate : 69 BPM P-R Int : 148 ms QRS Dur : 72 ms QT Int : 384 ms P-R-T Axes : 223 246 -86 degrees QTcB Int : 411 ms Sinus rhythm with Premature atrial complexes Right superior axis deviation Inferior infarct , age undetermined Abnormal ECG When compared with ECG of 27-Mar-2025 13:03, Premature atrial complexes are now Present QRS axis Shifted left Inferior infarct is now Present T wave inversion now evident in Inferior leads Confirmed by Jesse Osorio ([id number]) on 03/30/2025 6:06:34 AM Referred By: REFERRED SELF Confirmed By: Jesse Osorio
== END 2025-03-29 14:00 | disposition home or self-care (01) | DRG 378 ==
LOC: ED 12:30 → 2N 15:09 → SUATTDRO 15:09 → 2N 17:20